=== PATIENT | male | born 1950 | race Caucasian/White ===

== ENCOUNTER 2017-06-28 22:43 | Inpatient (IN) | payer MEDICARE, MEDICAID ==
[2017-06-28 22:43] VITALS: BMI 41.3
[2017-06-28] MEDS ORDERED: Aspirin 325 mg EC Tablets PO STA (23:00)
--- NOTE | 2017-06-28 23:00 | C.PDOC ---
History Of Present Illness 66 y/o male patient presents to the ER with chest pain that started 1 1/2 days ago. Patient describes pain as dull aching chest pressure. Patient denies any fever or chills. Patient is able to speak complete sentences. Patient has a Hx of smoking and diabetes. Time Seen by Provider: 06/28/17 22:59 Chief Complaint (Nursing): Chest Pain History Per: Patient History/Exam Limitations: no limitations Onset/Duration Of Symptoms: Days (1 1/2) Current Symptoms Are (Timing): Still Present Context: Other Severity: Moderate Pain Scale Rating Of: 4 Quality: Dull, Aching, Pressure Associated Symptoms: denies: Nausea, Dyspnea Modifying Factors: None Exacerbating Factors: None Alleviating Factors: None Recent travel outside of the [place]: No Additional History Per: Patient Past Medical History Reviewed: Historical Data, Nursing Documentation, Vital Signs Vital Signs: Last Vital Signs Temp 98 F 06/28/17 22:59 Pulse 89 06/28/17 22:59 Resp 15 06/28/17 22:59 BP 148/64 06/28/17 22:59 Pulse Ox 98 06/28/17 23:26 - Medical History PMH: Asthma, CAD, COPD, Diabetes, Fractures (RIGHT KNEE TO LOWER LEG MARGARET POST FX.), Gastrointestinal Ulcer, HTN, Hypercholesterolemia, Chronic Pain (Lower back) Surgical History: CABG (x2), Coronary Stent (x7) - [facility] Procedures CLOSURE SKIN & SUBCUTANEOUS NEC (04/10/14) TETANUS TOXOID ADMINIST (04/10/14) Family History: States: No Known Family Hx - Social History Hx Tobacco Use: Yes Hx Alcohol Use: No Hx Substance Use: No - Immunization History Hx Tetanus Toxoid Vaccination: Yes (04/10/2014) Hx Influenza Vaccination: No (unsure) Hx Pneumococcal Vaccination: No (unsure) Review Of Systems Constitutional: Negative for: Fever, Chills ENT: Negative for: Throat Pain Cardiovascular: Positive for: Chest Pain Respiratory: Negative for: Shortness of Breath Gastrointestinal: Negative for: Nausea Genitourinary: Negative for: Dysuria Musculoskeletal: Negative for: Back Pain Skin: Negative for: Rash Neurological: Negative for: Weakness Psych: Negative for: Anxiety Physical Exam - Physical Exam Appears: Non-toxic Skin: Warm, Dry Head: Normacephalic Eye(s): bilateral: Normal Inspection, PERRL, EOMI Oral Mucosa: Moist Teeth: Other (Poor dentition) Neck: Trachea Midline, Supple Chest: Symmetrical, Other (CABG scar) Cardiovascular: Rhythm Regular Respiratory: No Rales, No Rhonchi, No Wheezing Gastrointestinal/Abdominal: Soft, No Tenderness, No Rebound, Other (obese) Back: No CVA Tenderness Extremity: No Tenderness, No Pedal Edema Extremity: Bilateral: Atraumatic, Normal Color And Temperature, Normal ROM Pulses: Left Dorsalis Pedis: Normal, Right Dorsalis Pedis: Normal Neurological/Psych: Oriented x3, Normal Speech, Normal Cognition Gait: Steady ED Course And Treatment - Laboratory Results Result Diagrams: 06/28/17 23:17 06/28/17 23:12 ECG: Interpreted By Me, Viewed By Me ECG Rhythm: Sinus Rhythm (89), 1st Degree HB, Nonspecific Changes (pac's) O2 Sat by Pulse Oximetry: 98 (room air) Pulse Ox Interpretation: Normal - Radiology CXR: Interpreted by Me Progress Note: Plans-Blood tests, EKG, Chest X-ray, Urinalysis. Meds-Ecotrin, Morphine, IV fluid Disposition Discussed With DrMigue: Ye Durant Comment: accepted the pt on his service and took over the care at 11:57PM Doctor Will See Patient In The: Hospital Counseled Patient/Family Regarding: Studies Performed, Diagnosis - Disposition Disposition: HOSPITALIZED Disposition Time: 22:59 Condition: GUARDED Forms: [facility] ([place]) - POA Present On Arrival: Poor Glycemic Control - Clinical Impression Clinical Impression: Chest pain - Scribe Statement The provider has reviewed the documentation as recorded by the Theresa Burnett Provider Attestation: All medical record entries made by the Theresa were at my direction and personally dictated by me. I have reviewed the chart and agree that the record accurately reflects my personal performance of the history, physical exam, medical decision making, and the department course for this patient. I have also personally directed, reviewed, and agree with the discharge instructions and disposition. Decision To Admit - Pt Status Changed To: Hospital Disposition Of: Inpatient - Admit Certification Admit to Inpatient:: After my assessment, the patient will require hospitalization for at least two midnights. This is because of the severity of symptoms shown, intensity of services needed, and/or the medical risk in this patient being treated as an outpatient. - InPatient: Physician Admission Certification: I certify that this patient requires 2 or more midnights of care for the following reason:: After my assessment, the patient will require hospitalization for at least two midnights. This is because of the severity of symptoms shown, intensity of services needed, and/or the medical risk in this patient being treated as an outpatient. - . Bed Request Type: Telemetry Admitting Physician: Ye Durant Patient Diagnosis: Chest pain, Hyperglycemia
[2017-06-28] MEDS ORDERED: Sodium Chloride 0.9% 1,000 ML IV ONE (23:03)
[2017-06-28 23:15] LABS: BASO % 0.5 % (0.0-2.0); EOS # 0.2 K/uL (0.0-0.7); HEMATOCRIT 38.2 % (35.0-51.0); LYMPH # 1.8 K/uL (1.0-4.3); LYMPH % 20.1 % (20.0-40.0); MEAN CELL VOLUME 91.8 fL (80.0-94.0); MEAN CORPUSCULAR HEMOGLOBIN 32.2 pg (27.0-31.0); MEAN CORPUSCULAR HGB CONC 35.1 g/dL (33.0-37.0); MEAN PLATELET VOLUME 8.2 fL (7.2-11.7); MONO # 0.8 K/uL (0.0-0.8); MONO % 8.7 % (0.0-10.0); NRBC % 0.1 % (0.0-2.0); RED CELL DISTRIBUTION WIDTH 13.7 % (11.5-14.5); WHITE BLOOD COUNT 9.1 K/uL (4.8-10.8)
[2017-06-28] MEDS ORDERED: Aspirin 325 mg EC Tablets PO ONE (23:15)
[2017-06-28] MEDS ORDERED: Sodium Chloride 0.9% 1,000 ML ONE (23:16)
[2017-06-28 23:22] LABS: INR 1.1
[2017-06-28 23:23] LABS: CHLORIDE 100 mmol/L (98-107); POTASSIUM 3.5 mmol/L (3.6-5.2); SODIUM 134 mmol/L (132-148)
[2017-06-28 23:25] LABS: BILIRUBIN,TOTAL 0.5 mg/dL (0.2-1.3); GFR AFRICAN-AMERICAN > 60
[2017-06-28 23:26] LABS: ALB/GLOB RATIO 1.2 (1.0-2.1); ALKALINE PHOSPHATASE 73 U/L (38-126); ALT/SGPT 33 U/L (21-72); AST/SGOT 18 U/L (17-59); BLOOD UREA NITROGEN 13 mg/dL (9-20); CALCIUM 8.8 mg/dl (8.6-10.4); CARBON DIOXIDE 25 mmol/L (22-30); GLUCOSE,RANDOM 120 mg/dL (75-110); TOTAL PROTEIN 7.3 g/dL (6.3-8.3)
[2017-06-29 01:45] LABS: RBC URINE 2 /hpf (0-3); URINE BILIRUBIN NEGATIVE (NEGATIVE); URINE BLOOD NEGATIVE (NEGATIVE); URINE COLOR Yellow (YELLOW); URINE GLUCOSE (UA) NORMAL (Normal); URINE KETONE NEGATIVE (NEGATIVE); URINE LEUKOCYTE ESTERASE NEG Leu/uL (Negative); URINE PROTEIN NEGATIVE (NEGATIVE); URINE UROBILINOGEN NORMAL mg/dL (0.2-1.0); WBC URINE 1 /hpf (0-5)
--- NOTE | 2017-06-29 10:14 | RAD ---
PROCEDURE: CHEST RADIOGRAPH, 1 VIEW HISTORY: chest pain COMPARISON: Comparison is made to 06/19/2017 FINDINGS: LUNGS: Suboptimal study due to portable technique and patient's body habitus. No evidence of new infiltrate or consolidation in the lungs. PLEURA: No pneumothorax or pleural fluid seen. CARDIOVASCULAR: Normal. OSSEOUS STRUCTURES: No significant abnormalities. VISUALIZED UPPER ABDOMEN: Normal. OTHER FINDINGS: None. IMPRESSION: Suboptimal study due to portable technique and patient's body habitus. No evidence of acute pulmonary disease.
[2017-06-29] MEDS: Pantoprazole 40 mg EC Tab PO SCH (10:20)
[2017-06-29] MEDS: Enoxaparin 40 mg Syringe SC SCH (10:21)
--- NOTE | 2017-06-29 12:35 | CP.PCM.CON ---
History of Present Illness - History of Present Illness History of Present Illness: CARDIOLOGY CONSULT NOTE Reason for consult: chest pain HPI: Patient is a 66 yo man with history of CAD s/p prior CABG and PCI; HTN; HL ; DM; COPD; chronic back pain; asthma; who presents with 2 continuous days of consistent right sided sharp chest pain, worse with sneezing or coughing, and with movement of torso in certain position. This is very different from his anginal equivalent. No associated SOB, palpitations, orthopnea, PND, leg edema , syncope or presyncope. Came to [facility]. EKG was unermarkable except for old IMI pattern. Troponin neg x 2. Cardiology now consulted. ROS: as described in HPI, otherwise negative PMH: as above Surgical hx: + cabg Shx: + tobacco, no etoh, no drugs FHx: no premature cad Meds: reviewed All: reviewed Past Patient History - Infectious Disease Hx of Infectious Diseases: None - Past Medical History & Family History Past Medical History?: Yes - Past Social History Smoking Status: Heavy Smoker > 10 Cigarettes Daily - CARDIAC Hx Cardiac Disorders: Yes Hx Heart Attack: Yes (1998) Hx Hypercholesterolemia: Yes Hx Hypertension: Yes - PULMONARY Hx Respiratory Disorders: Yes Hx Asthma: Yes Hx Chronic Obstructive Pulmonary Disease (COPD): Yes Hx Sleep Apnea: Yes - NEUROLOGICAL Hx Neurological Disorder: No - HEENT Hx HEENT Problems: Yes Hx Cataracts: Yes (Bilateral Cataract surgery) Hx Glaucoma: Yes Other/Comment: LASER SURGERY FOR GLUCOMA. SURGERY FOR TRAUMA TO LEFT EAR - RENAL Hx Chronic Kidney Disease: No - ENDOCRINE/METABOLIC Hx Endocrine Disorders: Yes Hx Diabetes Mellitus Type 2: Yes - HEMATOLOGICAL/ONCOLOGICAL Hx Blood Disorders: No - INTEGUMENTARY Hx Dermatological Problems: No - MUSCULOSKELETAL/RHEUMATOLOGICAL Hx Musculoskeletal Disorders: No Hx Falls: No Other/Comment: Uses cane - GASTROINTESTINAL Hx Gastrointestinal Disorders: Yes Hx Ulcer: Yes - GENITOURINARY/GYNECOLOGICAL Hx Genitourinary Disorders: Yes Hx Prostate Problems: Yes (BPH) Other/Comment: Takes Flomax - PSYCHIATRIC Hx Psychophysiologic Disorder: Yes Hx Substance Use: No - SURGICAL HISTORY Hx Surgeries: Yes Hx Cataract Extraction: Yes Hx Coronary Artery Bypass Graft: Yes (x2) Hx Coronary Stent: Yes (x7) - ANESTHESIA Hx Anesthesia: Yes Hx Anesthesia Reactions: No Hx Malignant Hyperthermia: No Has any member of the family had a problem w/ anesthesia?: No Meds Allergies/Adverse Reactions: Allergies Allergy/AdvReac Type Severity Reaction Status Date / Time No Known Allergies Allergy Verified 08/31/16 16:27 - Medications Medications: Current Medications Aspirin (Aspirin) 325 mg PO DAILY [facility] Last Admin: 06/29/17 10:20 Dose: 325 mg Bisoprolol Fumarate (Zebeta) 10 mg PO DAILY [facility] Last Admin: 06/29/17 10:20 Dose: 10 mg Enalapril Maleate (Vasotec) 20 mg PO DAILY [facility] Last Admin: 06/29/17 10:21 Dose: 20 mg Enoxaparin Sodium (Lovenox) 40 mg SC DAILY [facility] Last Admin: 06/29/17 10:21 Dose: 40 mg Gabapentin (Neurontin) 300 mg PO BID [facility] Glimepiride (Amaryl) 4 mg PO DAILY [facility] Metformin HCl (Glucophage) 1,000 mg PO BID [facility] Last Admin: 06/29/17 10:20 Dose: 1,000 mg Pantoprazole Sodium (Protonix Ec Tab) 40 mg PO DAILY [facility] Last Admin: 06/29/17 10:20 Dose: 40 mg Pneumococcal Polyvalent Vaccine (Pneumovax 23 Vaccine) 0.5 ml IM .ONCE ONE Stop: 07/02/17 14:01 Rosuvastatin Calcium (Crestor) 20 mg PO [facility] Tamsulosin HCl (Flomax) 0.4 mg PO DAILY [facility] Last Admin: 06/29/17 10:20 Dose: 0.4 mg Physical Exam - Constitutional Appears: Well - Head Exam Head Exam: ATRAUMATIC - Eye Exam Eye Exam: Normal appearance - ENT Exam ENT Exam: Mucous Membranes Moist - Respiratory Exam Respiratory Exam: Clear to Auscultation Bilateral - Cardiovascular Exam Cardiovascular Exam: REGULAR RHYTHM, +S1, +S2 - GI/Abdominal Exam GI & Abdominal Exam: Soft - Extremities Exam Extremities exam: Negative for: pedal edema - Skin Skin Exam: Warm Results - Vital Signs Recent Vital Signs: Last Vital Signs Temp 98.2 F 06/29/17 04:00 Pulse 73 06/29/17 08:43 Resp 20 06/29/17 04:00 BP 165/86 H 06/29/17 10:21 Pulse Ox 96 06/29/17 04:00 - Labs Result Diagrams: 06/28/17 23:17 06/28/17 23:12 Labs: Laboratory Results - last 24 hr 06/28/17 06/28/17 06/28/17 23:01 23:12 23:12 WBC RBC Hgb Hct MCV MCH MCHC RDW Plt Count MPV Neut % (Auto) Lymph % (Auto) [place] % (Auto) Eos % (Auto) Baso % (Auto) Neut # Lymph # [place] # Eos # Baso # PT 12.8 H INR 1.1 APTT 30 Sodium 134 Potassium 3.5 L Chloride 100 Carbon Dioxide 25 Anion Gap 13 BUN 13 Creatinine 0.6 L Est GFR ( Amer) > 60 Est GFR (Non-Af Amer) > 60 POC Glucose (mg/dL) 134 H Random Glucose 120 H Calcium 8.8 Total Bilirubin 0.5 AST 18 ALT 33 Alkaline Phosphatase 73 Total Creatine Kinase CK-MB (Mass) Troponin I < 0.0120 Troponin I, Quant NT-Pro-B Natriuret Pep 348 Total Protein 7.3 Albumin 4.0 Globulin 3.3 Albumin/Globulin Ratio 1.2 Urine Color Urine Clarity Urine pH Ur Specific [place] Urine Protein Urine Glucose (UA) Urine Ketones Urine Blood Urine Nitrate Urine Bilirubin Urine Urobilinogen Ur Leukocyte Esterase Urine WBC (Auto) Urine RBC (Auto) 06/28/17 06/29/17 06/29/17 23:17 01:22 06:04 WBC 9.1 RBC 4.16 L Hgb 13.4 Hct 38.2 MCV 91.8 MCH 32.2 H MCHC 35.1 RDW 13.7 Plt Count 291 MPV 8.2 Neut % (Auto) 68.7 Lymph % (Auto) 20.1 [place] % (Auto) 8.7 Eos % (Auto) 2.0 Baso % (Auto) 0.5 Neut # 6.3 Lymph # 1.8 [place] # 0.8 Eos # 0.2 Baso # 0.0 PT INR APTT Sodium Potassium Chloride Carbon Dioxide Anion Gap BUN Creatinine Est GFR ( Amer) Est GFR (Non-Af Amer) POC Glucose (mg/dL) 92 Random Glucose Calcium Total Bilirubin AST ALT Alkaline Phosphatase Total Creatine Kinase CK-MB (Mass) Troponin I Troponin I, Quant NT-Pro-B Natriuret Pep Total Protein Albumin Globulin Albumin/Globulin Ratio Urine Color Yellow Urine Clarity Clear Urine pH 5.0 Ur Specific [place] 1.016 Urine Protein Negative Urine Glucose (UA) Normal Urine Ketones Negative Urine Blood Negative Urine Nitrate Negative Urine Bilirubin Negative Urine Urobilinogen Normal Ur Leukocyte Esterase Neg Urine WBC (Auto) 1 Urine RBC (Auto) 2 06/29/17 06/29/17 07:03 11:53 WBC RBC Hgb Hct MCV MCH MCHC RDW Plt Count MPV Neut % (Auto) Lymph % (Auto) [place] % (Auto) Eos % (Auto) Baso % (Auto) Neut # Lymph # [place] # Eos # Baso # PT INR APTT Sodium Potassium Chloride Carbon Dioxide Anion Gap BUN Creatinine Est GFR ( Amer) Est GFR (Non-Af Amer) POC Glucose (mg/dL) 140 H Random Glucose Calcium Total Bilirubin AST ALT Alkaline Phosphatase Total Creatine Kinase 45 L CK-MB (Mass) 0.91 Troponin I Troponin I, Quant < 0.0120 NT-Pro-B Natriuret Pep Total Protein Albumin Globulin Albumin/Globulin Ratio Urine Color Urine Clarity Urine pH Ur Specific [place] Urine Protein Urine Glucose (UA) Urine Ketones Urine Blood Urine Nitrate Urine Bilirubin Urine Urobilinogen Ur Leukocyte Esterase Urine WBC (Auto) Urine RBC (Auto) - Impressions Impression: EKG: sinus rhythm, old inferior NC pattern, nonspecific ST-T abnormalities Tele: intermittent AV Wenkebach and 2:1 AV block Assessment & Plan - Assessment and Plan (Free Text) Assessment: 1. Atypical chest pain -- Likely musculoskeletal 2. Intermittent AV Wenkebach (asymptomatic) -- Likely due to beta blockers 3. CAD s/p prior CABG and stents Plan: 1. Check 3rd troponin to rule out NC -- If negative, then patient may be discharged home from cardiac standpoint for outpt follow up with Dr. Silva 2. Consider NSAID's for musculoskeletal chest pain 3. Reduce Bisoprolol to 5mg daily for AV Wenkebach 4. Increase enalapril to 40mg daily for HTN, since bisoprolol dose is being reduced
--- NOTE | 2017-06-29 19:01 | CP.PCM.HP ---
Past Patient History - Infectious Disease Hx of Infectious Diseases: None - Past Medical History & Family History Past Medical History?: Yes - Past Social History Smoking Status: Heavy Smoker > 10 Cigarettes Daily - CARDIAC Hx Cardiac Disorders: Yes Hx Hypertension: Yes - PULMONARY Hx Respiratory Disorders: Yes Hx Asthma: Yes Hx Chronic Obstructive Pulmonary Disease (COPD): Yes Hx Sleep Apnea: Yes - NEUROLOGICAL Hx Neurological Disorder: No - HEENT Hx HEENT Problems: Yes Hx Cataracts: Yes (Bilateral Cataract surgery) Hx Glaucoma: Yes Other/Comment: LASER SURGERY FOR GLUCOMA. SURGERY FOR TRAUMA TO LEFT EAR - RENAL Hx Chronic Kidney Disease: No - ENDOCRINE/METABOLIC Hx Diabetes Mellitus Type 2: Yes - HEMATOLOGICAL/ONCOLOGICAL Hx Blood Disorders: No - INTEGUMENTARY Hx Dermatological Problems: No - MUSCULOSKELETAL/RHEUMATOLOGICAL Hx Arthritis: Yes (lbp; r knee pain) - GASTROINTESTINAL Hx Gastrointestinal Disorders: Yes Hx Ulcer: Yes - GENITOURINARY/GYNECOLOGICAL Hx Genitourinary Disorders: Yes Hx Prostate Problems: Yes (BPH) Other/Comment: Takes Flomax - PSYCHIATRIC Hx Psychophysiologic Disorder: Yes Hx Substance Use: No - SURGICAL HISTORY Hx Surgeries: Yes Hx Cataract Extraction: Yes Hx Coronary Artery Bypass Graft: Yes (x2) Hx Coronary Stent: Yes (x7) - ANESTHESIA Hx Anesthesia: Yes Hx Anesthesia Reactions: No Hx Malignant Hyperthermia: No Has any member of the family had a problem w/ anesthesia?: No Meds Allergies/Adverse Reactions: Allergies Allergy/AdvReac Type Severity Reaction Status Date / Time No Known Allergies Allergy Verified 08/31/16 16:27 Physical Exam - Constitutional Appears: Well - Head Exam Head Exam: ATRAUMATIC, NORMAL INSPECTION, NORMOCEPHALIC - Eye Exam Eye Exam: EOMI, Normal appearance, PERRL Pupil Exam: NORMAL ACCOMODATION, PERRL - ENT Exam ENT Exam: Mucous Membranes Moist, Normal Exam - Neck Exam Neck exam: Positive for: Normal Inspection - Respiratory Exam Respiratory Exam: Decreased Breath Sounds - Cardiovascular Exam Cardiovascular Exam: REGULAR RHYTHM, +S1, +S2 - GI/Abdominal Exam GI & Abdominal Exam: Diminished Bowel Sounds, Soft - Rectal Exam Rectal Exam: Deferred Results - Vital Signs Recent Vital Signs: Last Vital Signs Temp 97.7 F 06/29/17 15:06 Pulse 58 L 06/29/17 15:06 Resp 20 06/29/17 15:06 BP 114/67 10/14/17 15:06 Pulse Ox 96 06/29/17 15:06 - Labs Result Diagrams: 06/28/17 23:17 06/28/17 23:12 Labs: Laboratory Results - last 24 hr 06/28/17 06/28/17 06/28/17 23:01 23:12 23:12 WBC RBC Hgb Hct MCV MCH MCHC RDW Plt Count MPV Neut % (Auto) Lymph % (Auto) [place] % (Auto) Eos % (Auto) Baso % (Auto) Neut # Lymph # [place] # Eos # Baso # PT 12.8 H INR 1.1 APTT 30 Sodium 134 Potassium 3.5 L Chloride 100 Carbon Dioxide 25 Anion Gap 13 BUN 13 Creatinine 0.6 L Est GFR ( Amer) > 60 Est GFR (Non-Af Amer) > 60 POC Glucose (mg/dL) 134 H Random Glucose 120 H Calcium 8.8 Total Bilirubin 0.5 AST 18 ALT 33 Alkaline Phosphatase 73 Total Creatine Kinase CK-MB (Mass) Troponin I < 0.0120 Troponin I, Quant NT-Pro-B Natriuret Pep 348 Total Protein 7.3 Albumin 4.0 Globulin 3.3 Albumin/Globulin Ratio 1.2 Urine Color Urine Clarity Urine pH Ur Specific [place] Urine Protein Urine Glucose (UA) Urine Ketones Urine Blood Urine Nitrate Urine Bilirubin Urine Urobilinogen Ur Leukocyte Esterase Urine WBC (Auto) Urine RBC (Auto) 06/28/17 06/29/17 06/29/17 23:17 01:22 06:04 WBC 9.1 RBC 4.16 L Hgb 13.4 Hct 38.2 MCV 91.8 MCH 32.2 H MCHC 35.1 RDW 13.7 Plt Count 291 MPV 8.2 Neut % (Auto) 68.7 Lymph % (Auto) 20.1 [place] % (Auto) 8.7 Eos % (Auto) 2.0 Baso % (Auto) 0.5 Neut # 6.3 Lymph # 1.8 [place] # 0.8 Eos # 0.2 Baso # 0.0 PT INR APTT Sodium Potassium Chloride Carbon Dioxide Anion Gap BUN Creatinine Est GFR ( Amer) Est GFR (Non-Af Amer) POC Glucose (mg/dL) 92 Random Glucose Calcium Total Bilirubin AST ALT Alkaline Phosphatase Total Creatine Kinase CK-MB (Mass) Troponin I Troponin I, Quant NT-Pro-B Natriuret Pep Total Protein Albumin Globulin Albumin/Globulin Ratio Urine Color Yellow Urine Clarity Clear Urine pH 5.0 Ur Specific [place] 1.016 Urine Protein Negative Urine Glucose (UA) Normal Urine Ketones Negative Urine Blood Negative Urine Nitrate Negative Urine Bilirubin Negative Urine Urobilinogen Normal Ur Leukocyte Esterase Neg Urine WBC (Auto) 1 Urine RBC (Auto) 2 06/29/17 06/29/17 06/29/17 07:03 11:53 13:29 WBC RBC Hgb Hct MCV MCH MCHC RDW Plt Count MPV Neut % (Auto) Lymph % (Auto) [place] % (Auto) Eos % (Auto) Baso % (Auto) Neut # Lymph # [place] # Eos # Baso # PT INR APTT Sodium Potassium Chloride Carbon Dioxide Anion Gap BUN Creatinine Est GFR ( Amer) Est GFR (Non-Af Amer) POC Glucose (mg/dL) 140 H Random Glucose Calcium Total Bilirubin AST ALT Alkaline Phosphatase Total Creatine Kinase 45 L 41 L CK-MB (Mass) 0.91 0.86 Troponin I Troponin I, Quant < 0.0120 < 0.0120 NT-Pro-B Natriuret Pep Total Protein Albumin Globulin Albumin/Globulin Ratio Urine Color Urine Clarity Urine pH Ur Specific [place] Urine Protein Urine Glucose (UA) Urine Ketones Urine Blood Urine Nitrate Urine Bilirubin Urine Urobilinogen Ur Leukocyte Esterase Urine WBC (Auto) Urine RBC (Auto) 06/29/17 16:34 WBC RBC Hgb Hct MCV MCH MCHC RDW Plt Count MPV Neut % (Auto) Lymph % (Auto) [place] % (Auto) Eos % (Auto) Baso % (Auto) Neut # Lymph # [place] # Eos # Baso # PT INR APTT Sodium Potassium Chloride Carbon Dioxide Anion Gap BUN Creatinine Est GFR ( Amer) Est GFR (Non-Af Amer) POC Glucose (mg/dL) 122 H Random Glucose Calcium Total Bilirubin AST ALT Alkaline Phosphatase Total Creatine Kinase CK-MB (Mass) Troponin I Troponin I, Quant NT-Pro-B Natriuret Pep Total Protein Albumin Globulin Albumin/Globulin Ratio Urine Color Urine Clarity Urine pH Ur Specific [place] Urine Protein Urine Glucose (UA) Urine Ketones Urine Blood Urine Nitrate Urine Bilirubin Urine Urobilinogen Ur Leukocyte Esterase Urine WBC (Auto) Urine RBC (Auto)
[2017-06-29] MEDS ORDERED: Potassium Chloride 20 mEq ER Tab PO STA (23:33)
[2017-06-30 08:03] VITALS: RESP 20
[2017-06-30] MEDS: Enoxaparin 40 mg Syringe SC SCH (09:23)
[2017-06-30] MEDS: Pantoprazole 40 mg EC Tab PO SCH (09:24)
--- NOTE | 2017-06-30 19:41 | CP.PCM.PN ---
Subjective - Date & Time of Evaluation Date of Evaluation: 06/30/17 Time of Evaluation: 11:40 - Subjective Subjective: clinically same Objective - Vital Signs/Intake and Output Vital Signs (last 24 hours): Temp Pulse Resp BP Pulse Ox 98.1 F 70 20 150/69 98 06/30/17 15:20 06/30/17 15:20 06/30/17 15:20 06/30/17 15:20 06/30/17 15:20 - Medications Medications: Current Medications Aspirin (Aspirin) 325 mg PO DAILY [facility] Last Admin: 06/30/17 09:24 Dose: 325 mg Enalapril Maleate (Vasotec) 40 mg PO DAILY [facility] Last Admin: 06/30/17 09:30 Dose: 40 mg Enoxaparin Sodium (Lovenox) 40 mg SC DAILY [facility] Last Admin: 06/30/17 09:23 Dose: 40 mg Gabapentin (Neurontin) 300 mg PO BID [facility] Last Admin: 06/30/17 18:06 Dose: 300 mg Glimepiride (Amaryl) 4 mg PO DAILY [facility] Last Admin: 06/30/17 09:24 Dose: 4 mg Ketorolac Tromethamine (Toradol) 30 mg IVP Q6 PRN PRN Reason: Pain, severe (8-10) Last Admin: 06/30/17 04:15 Dose: 30 mg Metformin HCl (Glucophage) 1,000 mg PO BID [facility] Last Admin: 06/30/17 18:04 Dose: 1,000 mg Pantoprazole Sodium (Protonix Ec Tab) 40 mg PO DAILY [facility] Last Admin: 06/30/17 09:24 Dose: 40 mg Pneumococcal Polyvalent Vaccine (Pneumovax 23 Vaccine) 0.5 ml IM .ONCE ONE Stop: 07/02/17 14:01 Rosuvastatin Calcium (Crestor) 20 mg PO HS [facility] Last Admin: 06/29/17 22:19 Dose: 20 mg Tamsulosin HCl (Flomax) 0.4 mg PO DAILY [facility] Last Admin: 06/30/17 09:24 Dose: 0.4 mg - Labs Labs: 06/28/17 23:17 06/28/17 23:12 PT 12.8 SECONDS (9.7-12.2) H 06/28/17 23:12 INR 1.1 06/28/17 23:12 APTT 30 SECONDS (21-34) 06/28/17 23:12 - Constitutional Appears: Well - Head Exam Head Exam: ATRAUMATIC, NORMAL INSPECTION, NORMOCEPHALIC - Eye Exam Eye Exam: EOMI, Normal appearance, PERRL Pupil Exam: NORMAL ACCOMODATION, PERRL - ENT Exam ENT Exam: Mucous Membranes Moist, Normal Exam - Neck Exam Neck Exam: Full ROM, Normal Inspection. absent: Lymphadenopathy - Respiratory Exam Respiratory Exam: Decreased Breath Sounds - Cardiovascular Exam Cardiovascular Exam: REGULAR RHYTHM, +S1, +S2 - GI/Abdominal Exam GI & Abdominal Exam: Soft, Diminished Bowel Sounds - Rectal Exam Rectal Exam: Deferred
[2017-07-01 00:52] VITALS: O2SAT 97
[2017-07-01 08:38] VITALS: PULSE 69; TEMP 98.5
--- NOTE | 2017-07-01 09:10 | CP.PCM.PN ---
Subjective - Date & Time of Evaluation Date of Evaluation: 07/01/17 Time of Evaluation: 09:10 - Subjective Subjective: PGY-[address] Durant's Service: Pt seen and examined at bedside. Nursing reports no acute events overnight. Patient found resting comfortably in bed. He still c/o of atypical right-sided chest pain. He denies association with SOB, palpitations, diaphoresis. He denies extremity swelling or dyspnea with exertion. Objective - Vital Signs/Intake and Output Vital Signs (last 24 hours): Temp Pulse Resp BP Pulse Ox 98.5 F 69 20 177/77 H 97 07/01/17 07:10 07/01/17 07:10 07/01/17 07:10 07/01/17 07:10 07/01/17 07:10 Intake and Output: 07/01/17 07/01/17 06:59 18:59 Intake Total 600 Output Total 1400 Balance -800 - Medications Medications: Current Medications Aspirin (Aspirin) 325 mg PO DAILY [facility] Last Admin: 06/30/17 09:24 Dose: 325 mg Enalapril Maleate (Vasotec) 40 mg PO DAILY [facility] Last Admin: 06/30/17 09:30 Dose: 40 mg Enoxaparin Sodium (Lovenox) 40 mg SC DAILY [facility] Last Admin: 06/30/17 09:23 Dose: 40 mg Gabapentin (Neurontin) 300 mg PO BID [facility] Last Admin: 06/30/17 18:06 Dose: 300 mg Glimepiride (Amaryl) 4 mg PO DAILY [facility] Last Admin: 06/30/17 09:24 Dose: 4 mg Ketorolac Tromethamine (Toradol) 30 mg IVP Q6 PRN PRN Reason: Pain, severe (8-10) Last Admin: 07/01/17 00:31 Dose: 30 mg Metformin HCl (Glucophage) 1,000 mg PO BID [facility] Last Admin: 06/30/17 18:04 Dose: 1,000 mg Pantoprazole Sodium (Protonix Ec Tab) 40 mg PO DAILY [facility] Last Admin: 06/30/17 09:24 Dose: 40 mg Pneumococcal Polyvalent Vaccine (Pneumovax 23 Vaccine) 0.5 ml IM .ONCE ONE Stop: 07/02/17 14:01 Rosuvastatin Calcium (Crestor) 20 mg PO [facility] Last Admin: 06/30/17 21:58 Dose: 20 mg Tamsulosin HCl (Flomax) 0.4 mg PO DAILY [facility] Last Admin: 06/30/17 09:24 Dose: 0.4 mg - Labs Labs: 06/28/17 23:17 06/28/17 23:12 PT 12.8 SECONDS (9.7-12.2) H 06/28/17 23:12 INR 1.1 06/28/17 23:12 APTT 30 SECONDS (21-34) 06/28/17 23:12 - Constitutional Appears: Non-toxic, No Acute Distress (Excess body habitus noted) - Head Exam Head Exam: ATRAUMATIC, NORMAL INSPECTION - Eye Exam Eye Exam: EOMI Pupil Exam: PERRL - ENT Exam ENT Exam: Mucous Membranes Moist - Respiratory Exam Respiratory Exam: Clear to Ausculation Bilateral, NORMAL BREATHING PATTERN - Cardiovascular Exam Cardiovascular Exam: REGULAR RHYTHM, +S1, +S2. absent: Murmur - GI/Abdominal Exam GI & Abdominal Exam: Soft, Normal Bowel Sounds. absent: Tenderness - Back Exam Back Exam: absent: CVA tenderness (L), CVA tenderness (R) - Neurological Exam Neurological Exam: Alert, Awake, Oriented x3 - Psychiatric Exam Psychiatric exam: Normal Affect, Normal Mood - Skin Skin Exam: Dry, Normal Color, Warm Assessment and Plan - Assessment and Plan (Free Text) Plan: Chest pain - R/O ACS JULIO: negative x [address] Silva, clinical operations consultant: help appreciated - CP non-anginal - Pt should follow up in office EKG: Mobitz Type I AV block - resolved with lower dose of bisoprolol ASA 325mg PO Daily HTN Start Norvasc 5mg Daily per cardio Vasotec 20mg PO BID Type Two diabetes BG better controlled today Continue home meds Metformin 1000mg PO BID Glimepiride 4mg PO Daily Hyperlipidemia Crestor 20mg PO HS BPH Flomax 0.4 mg PO Daily Prophylaxis Protonix 40mg PO Daily Lovenox 40mg SC daily SCDs Disposition: Pt for dsicharge today
--- NOTE | 2017-07-01 10:04 | CP.PCM.PN ---
Subjective - Date & Time of Evaluation Date of Evaluation: 07/01/17 Time of Evaluation: 10:00 - Subjective Subjective: pt still has right sided postional chest pain. Objective - Vital Signs/Intake and Output Vital Signs (last 24 hours): Temp Pulse Resp BP Pulse Ox 98.5 F 69 20 177/77 H 97 07/01/17 07:10 07/01/17 07:10 07/01/17 07:10 07/01/17 07:10 07/01/17 07:10 Intake and Output: 07/01/17 07/01/17 06:59 18:59 Intake Total 600 Output Total 1400 Balance -800 - Medications Medications: Current Medications Aspirin (Aspirin) 325 mg PO DAILY [facility] Last Admin: 06/30/17 09:24 Dose: 325 mg Enalapril Maleate (Vasotec) 40 mg PO DAILY [facility] Last Admin: 06/30/17 09:30 Dose: 40 mg Enoxaparin Sodium (Lovenox) 40 mg SC DAILY [facility] [place] Last Admin: 06/30/17 09:23 Dose: 40 mg Gabapentin (Neurontin) 300 mg PO BID [facility] Last Admin: 06/30/17 18:06 Dose: 300 mg Glimepiride (Amaryl) 4 mg PO DAILY [facility] [place] Last Admin: 06/30/17 09:24 Dose: 4 mg Ketorolac Tromethamine (Toradol) 30 mg IVP Q6 PRN PRN Reason: Pain, severe (8-10) Last Admin: 07/01/17 00:31 Dose: 30 mg Metformin HCl (Glucophage) 1,000 mg PO BID [facility] [place] Last Admin: 06/30/17 18:04 Dose: 1,000 mg Pantoprazole Sodium (Protonix Ec Tab) 40 mg PO DAILY [facility] [place] Last Admin: 06/30/17 09:24 Dose: 40 mg Pneumococcal Polyvalent Vaccine (Pneumovax 23 Vaccine) 0.5 ml IM .ONCE ONE Stop: 07/02/17 14:01 Rosuvastatin Calcium (Crestor) 20 mg PO HS [facility] [place] Last Admin: 06/30/17 21:58 Dose: 20 mg Tamsulosin HCl (Flomax) 0.4 mg PO DAILY [facility] Last Admin: 06/30/17 09:24 Dose: 0.4 mg - Labs Labs: 06/28/17 23:17 06/28/17 23:12 PT 12.8 SECONDS (9.7-12.2) H 06/28/17 23:12 INR 1.1 06/28/17 23:12 APTT 30 SECONDS (21-34) 06/28/17 23:12 - Constitutional Appears: Well - Head Exam Head Exam: NORMAL INSPECTION - Eye Exam Eye Exam: EOMI - ENT Exam ENT Exam: Mucous Membranes Moist - Respiratory Exam Respiratory Exam: NORMAL BREATHING PATTERN - Cardiovascular Exam Cardiovascular Exam: REGULAR RHYTHM - GI/Abdominal Exam GI & Abdominal Exam: Normal Bowel Sounds - Extremities Exam Extremities Exam: Full ROM - Back Exam Back Exam: NORMAL INSPECTION - Neurological Exam Neurological Exam: Alert, Awake, Normal Gait - Psychiatric Exam Psychiatric exam: Normal Affect - Skin Skin Exam: Dry, Normal Color Assessment and Plan - Assessment and Plan (Free Text) Assessment: 1;.BP is high: will add norvasc 5. I would have preferred chlorthalidone, but as k was 3.5 and there is no repeat lab, I am hesitant to start now, if the pt is to go home today. Change enalapril to 20 bid. 2. Mobitz I av block has resolved with lower bisoprolol. , but bp i high. 3. Pt's chest pain is clearly non anginal. For this kind of pain, steroids are oten best, but would sulrely cause increase in BP. Pt should f/u with me, and If needed, I could give him a low dose steroid with c;lose monitoring of BP and fluid retention. 3. CAD is stable. recent stress test did not show ischemia.
[2017-07-01] MEDS: Enoxaparin 40 mg Syringe SC SCH (10:31)
[2017-07-01] MEDS: Pantoprazole 40 mg EC Tab PO SCH (10:32)
[2017-07-01 10:33] VITALS: BP 170/74
--- NOTE | 2017-07-01 12:49 | CARD ---
APPROVED REPORT EKG Measurement Heart [id number] <Conclusion> Sinus rhythm with 1st degree AV block with occasional premature ventricular complexes Possible Inferior infarct, age undetermined Abnormal ECG
--- NOTE | 2017-07-01 22:00 | CP.PCM.PN ---
Objective - Vital Signs/Intake and Output Vital Signs (last 24 hours): Temp Pulse Resp BP Pulse Ox 98.5 F 69 20 170/74 H 97 07/01/17 07:10 07/01/17 07:10 07/01/17 07:10 07/01/17 10:33 07/01/17 07:10 Intake and Output: 07/01/17 07/02/17 18:59 06:59 Intake Total 400 Balance 400 - Labs Labs: 06/28/17 23:17 06/28/17 23:12 PT 12.8 SECONDS (9.7-12.2) H 06/28/17 23:12 INR 1.1 06/28/17 23:12 APTT 30 SECONDS (21-34) 06/28/17 23:12
[2017-07-02] MEDS ORDERED: Pneumococcal 23-Valent Vaccine IM ONE (14:00)
[2017-07-02] MEDS ORDERED: Influenza Vaccine 60 mcg/0.5 mL SYR (4YR UP) IM ONE (14:00)
== END 2017-07-01 15:22 | disposition home or self-care (01) | DRG 313 ==
LOC: C.ER 22:43 → C.5S 23:55 → C.6T 06-29 00:44
PROVIDERS: ADMIT Internal Medicine Nephrology; ATTEND Internal Medicine Nephrology
DX: R07.89 Other chest pain (principal); I44.0 Atrioventricular block, first degree; E11.65 Type 2 diabetes mellitus with hyperglycemia; I10 Essential (primary) hypertension; I25.10 Atherosclerotic heart disease of native coronary artery without angina pectoris; J44.9 Chronic obstructive pulmonary disease, unspecified; E78.5 Hyperlipidemia, unspecified; N40.0 Benign prostatic hyperplasia without lower urinary tract symptoms; M54.5 Low back pain; G89.29 Other chronic pain; H40.9 Unspecified glaucoma; G47.30 Sleep apnea, unspecified; I25.2 Old myocardial infarction; Z95.1 Presence of aortocoronary bypass graft; Z95.5 Presence of coronary angioplasty implant and graft; Z79.4 Long term (current) use of insulin; Z98.42 Cataract extraction status, left eye; Z98.41 Cataract extraction status, right eye

== ENCOUNTER 2017-08-06 04:25 | Emergency (ER) | payer MEDICARE, MEDICAID ==
[2017-08-06 04:25] VITALS: BMI 41.3
[2017-08-06] MEDS ORDERED: Naproxen 550 mg Tab PO STA (05:15)
--- NOTE | 2017-08-06 05:19 | C.PDOC ---
History Of Present Illness 66 year old male presents to the ER with a complaint of left ankle pain for the past 4 days. Patient reports the area is swollen and warm to touch, he notes having no relief with percocet. Denies trauma, Hx of similar, or Hx of gout. Time Seen by Provider: 08/06/17 04:45 Chief Complaint (Nursing): Lower Extremity Problem/Injury History Per: Patient History/Exam Limitations: no limitations Onset/Duration Of Symptoms: Days Current Symptoms Are (Timing): Still Present Recent travel outside of the [place]: No Past Medical History Reviewed: Historical Data, Nursing Documentation, Vital Signs Vital Signs: Last Vital Signs Temp 98.1 F 08/06/17 04:39 Pulse 82 08/06/17 04:39 Resp 20 08/06/17 04:39 BP 128/77 08/06/17 04:39 Pulse Ox 98 08/06/17 05:52 - Medical History PMH: Arthritis (lbp; r knee pain), Asthma, CAD, COPD, Diabetes, Fractures ( RIGHT KNEE TO LOWER LEG MARGARET POST FX.), Gastrointestinal Ulcer, HTN, Hypercholesterolemia, Sleep Apnea, Chronic Pain (Lower back) Surgical History: CABG (x2), Coronary Stent (x7) - [facility] Procedures CLOSURE SKIN & SUBCUTANEOUS NEC (04/10/14) TETANUS TOXOID ADMINIST (04/10/14) Family History: States: Unknown Family Hx - Social History Hx Tobacco Use: Yes Hx Alcohol Use: No Hx Substance Use: No - Immunization History Hx Tetanus Toxoid Vaccination: Yes (04/10/2014) Hx Influenza Vaccination: No (unsure) Hx Pneumococcal Vaccination: No (unsure) Review Of Systems Musculoskeletal: Positive for: Foot Pain Skin: Positive for: Other (Swelling and warmth to left ankle) Neurological: Negative for: Weakness, Numbness Physical Exam - Physical Exam Appears: Non-toxic, No Acute Distress Skin: Warm, Dry Head: Atraumatic, Normacephalic Extremity: Normal ROM (x4), Tenderness (w/ erythema to left medial malleolus), No Pedal Edema, No Calf Tenderness, Capillary Refill (<2 seconds), No Deformity , No Swelling, Other (Old healed scar to left medial malleolus extending down from leg from bypass surgery long time ago.) Extremity: Bilateral: Atraumatic Pulses: Left Dorsalis Pedis: Normal, Right Dorsalis Pedis: Normal Neurological/Psych: Oriented x3, Normal Speech, Normal Motor, Normal Sensation Gait: Steady ED Course And Treatment O2 Sat by Pulse Oximetry: 98 (Room air) Pulse Ox Interpretation: Normal - Other Rad Left ankle x-ray X-Ray: Interpreted by Me, Viewed By Me Interpretation: No acute fractures or dislocations. Progress Note: Blood work and left ankle x-ray ordered. Naproxen administered. KRISHNA applied Reevaluation Time: 06:28 Reassessment Condition: Improved (Pt will continue current pain meds. Keflex PO ordered and pt advised follow up with PMD) Disposition Counseled Patient/Family Regarding: Diagnosis, Need For Followup, Rx Given - Disposition Disposition: HOME/ ROUTINE Disposition Time: 06:21 Condition: STABLE Additional Instructions: Please follow up with PMD Continue current pain meds Keflex po Leg elevation Return to ER if worse Prescriptions: Cephalexin [cephalexin] 500 mg PO QID #28 cap Instructions: Cellulitis (ED), Gout (ED) Forms: [employer] (Guatemalan) - Clinical Impression Clinical Impression: Ankle pain, left, Cellulitis of left ankle - Scribe Statement The provider has reviewed the documentation as recorded by the Scribe Bahman Sosa All medical record entries made by the Scribe were at my direction and personally dictated by me. I have reviewed the chart and agree that the record accurately reflects my personal performance of the history, physical exam, medical decision making, and the department course for this patient. I have also personally directed, reviewed, and agree with the discharge instructions and disposition.
[2017-08-06] MEDS ORDERED: Naproxen 550 mg Tab PO ONE (05:34)
[2017-08-06 06:38] VITALS: BP 123/73; PULSE 78; RESP 22; TEMP 98.4; O2SAT 96
--- NOTE | 2017-08-06 08:27 | RAD ---
PROCEDURE: Left Ankle Radiographs. HISTORY: pain to right ankle, medial malleolus COMPARISON: None FINDINGS: BONES: Normal. No fracture. JOINTS: Normal. No osteoarthritis. Ankle mortise maintained. Possible 2 mm lateral subchondral cyst of talar dome. Otherwise the talar dome is intact. No talar fracture suggested SOFT TISSUES: Soft tissue swelling below the medial malleolus OTHER FINDINGS: None. IMPRESSION: No fracture. . Soft tissue swelling. Possible 2 mm lateral subchondral cyst-talar dome
== END 2017-08-06 06:49 | disposition home or self-care (01) ==
LOC: C.ER 04:25
DX: M25.572 Pain in left ankle and joints of left foot (principal); L03.116 Cellulitis of left lower limb

== ENCOUNTER 2017-11-12 06:57 | Day surgery (SDC) | payer MEDICARE, MEDICAID ==
[2017-11-12] MEDS ORDERED: Propofol 10 mg/ml Inj (20 ML) ONE (09:45)
[2017-11-12] MEDS ORDERED: Lidocaine 1% PF (5ml) Amp INJ ONE (09:45)
--- NOTE | 2017-11-12 09:48 | CP.SDSHP ---
Same Day Surgery H & P - History Proposed Procedure: EGD Pre-Op Diagnosis: SEE NOTES - Previous Medical/Surgical History Cardiac: Hypertension, ASHD/CAD Endocrine/Metabolic: Diabetes Neuro: Other Misc: Other Pain: 4.Moderate Pain - Allergies Allergies: Allergies No Known Allergies Allergy (Verified 11/12/17 07:19) - Physical Exam General Appearance: N Vital Signs: Vital Signs 11/12/17 11/12/17 07:00 09:04 Temperature 97.3 F L 97.3 F L Pulse Rate 80 80 Respiratory 20 20 Rate Blood Pressure 116/87 116/87 O2 Sat by Pulse 97 97 Oximetry Mental Status: Alert & Oriented x3 Neuro: WNL Heart: Other Lungs: WNL GI: Other - {Optional Preform as Required} Breast: WNL Abdomen: Other Rectal: Other Integument: WNL : Other Ortho: WNL ENT: WNL - Impression Pt. Evaluated Today:Candidate for Anesthesia & Procedure: Yes - Date & Time Time: 09:48 Short Stay Discharge - Short Stay Discharge Admitting Diagnosis/Reason for Visit: DYSPEPSIA, ABDOMINAL PAIN Disposition: HOME/ ROUTINE
[2017-11-12] MEDS ORDERED: Ciprofloxacin 400mg/200ml D5W 400 MG/200 ML BAG IVPB STA (09:57)
[2017-11-12] MEDS ORDERED: Belladonna-Phenobarbital PO STA (09:58)
[2017-11-12] MEDS ORDERED: Pantoprazole 40 mg EC Tab PO STA (09:59)
[2017-11-12 13:46] VITALS: TEMP 96.8; O2SAT 99
[2017-11-12 13:47] VITALS: BP 140/70; PULSE 82; RESP 19
== END 2017-11-12 12:30 | disposition home or self-care (01) ==
LOC: C.ENDO 06:57
PROVIDERS: ATTEND Specialist
DX: R10.13 Epigastric pain (principal); B96.81 Helicobacter pylori [H. pylori] as the cause of diseases classified elsewhere; E11.9 Type 2 diabetes mellitus without complications; I10 Essential (primary) hypertension; I25.10 Atherosclerotic heart disease of native coronary artery without angina pectoris; K25.9 Gastric ulcer, unspecified as acute or chronic, without hemorrhage or perforation; K29.70 Gastritis, unspecified, without bleeding; K44.9 Diaphragmatic hernia without obstruction or gangrene
CPT/HCPCS: 43239; 82948; 88305; J0744

== ENCOUNTER 2017-11-14 16:19 | Emergency (ER) | payer MEDICARE, MEDICAID ==
[2017-11-14 16:33] VITALS: BMI 41.6
--- NOTE | 2017-11-14 16:59 | C.PDOC ---
History Of Present Illness 67 yr old male sent to the ER from Dr. Silva office with complaint of pain to the left mastoid process area. Patient states he has had neck pain since he had and upper endoscopy during his admission on November 07. Patient has cervical spine films done with no significant findings. States he does not take any medicine, ice or heat therapy for the pain. Patient follows up with Dr. Silva. Patient has poor compliance with medicine. Patient reports he still smoking 1 pack of cigarettes a day, is s/p CABG and AAA repair. Patient denies fever, chills, vision changes, nausea, vomiting, weakness, numbness or headache. Time Seen by Provider: 11/14/17 16:56 Chief Complaint (Nursing): Medical Clearance History Per: Patient History/Exam Limitations: no limitations Onset/Duration Of Symptoms: Days Past Medical History Reviewed: Historical Data, Nursing Documentation, Vital Signs Vital Signs: Last Vital Signs Temp 98.1 F 11/14/17 19:11 Pulse 80 11/14/17 19:11 Resp 18 11/14/17 19:11 BP 160/89 H 11/14/17 19:11 Pulse Ox 98 11/14/17 19:11 - Medical History PMH: Arthritis (lbp; r knee pain), Asthma, Benign Prostatic Hyperplasia, CAD, COPD, Diabetes, Fractures (RIGHT KNEE TO LOWER LEG MARGARET POST FX.), Gastrointestinal Ulcer, HTN, Hypercholesterolemia, Sleep Apnea, Chronic Pain ( Lower back) Surgical History: CABG (x2), Coronary Stent (x7) - [facility] Procedures CLOSURE SKIN & SUBCUTANEOUS NEC (04/10/14) TETANUS TOXOID ADMINIST (04/10/14) Family History: States: No Known Family Hx - Social History Hx Tobacco Use: Yes Hx Alcohol Use: No Hx Substance Use: No - Immunization History Hx Tetanus Toxoid Vaccination: Yes (04/10/2014) Hx Influenza Vaccination: No (unsure) Hx Pneumococcal Vaccination: No (unsure) Review Of Systems Except As Marked, All Systems Reviewed And Found Negative. Constitutional: Negative for: Fever, Chills Eyes: Negative for: Vision Change Gastrointestinal: Negative for: Nausea, Vomiting Musculoskeletal: Positive for: Neck Pain (left mastoid process area pain) Physical Exam - Physical Exam Appears: Non-toxic, No Acute Distress Skin: Warm, Dry Head: Atraumatic, Normacephalic Ear(s): Left: Other (surgical implanted left tympanic membrane, hardware seen), Right: Normal Oral Mucosa: Moist Neck: Normal ROM, Supple, Other (+ tenderness to left mastoid process area - no tenderness to sternocleidomastoid area) Respiratory: Normal Breath Sounds, No Rales, No Rhonchi, No Stridor, No Wheezing Extremity: Normal ROM, No Swelling Neurological/Psych: Oriented x3, Normal Speech ED Course And Treatment - Laboratory Results Result Diagrams: 11/14/17 17:25 11/14/17 17:25 ECG: Interpreted By Me, Viewed By Me ECG Rhythm: Sinus Tachycardia Rate From EC (BPM) O2 Sat by Pulse Oximetry: 92 (RA) Pulse Ox Interpretation: Normal - Radiology CXR: Viewed By Me, Read By Radiologist CXR Interpretation: Yes: Other (IMPRESSION: Similar cardiomegaly. Again noted is mild prominence to the central pulmonary vasculature and mild prominence to the overall interstitial lung markings- as described above. These findings may be chronic. Jose pleural effusion noted. No consolidative infiltrate.) - CT Scan/US CT - IAC Other Rad Studies (CT/US): Read By Radiologist, Radiology Report Reviewed CT/US Interpretation: IMPRESSION: Thickened left tympanic membrane is appreciated however there is no evidence of otitis media or mastoiditis on an acute basis bilaterally. The tympanic membrane pattern may be postoperative status post replacement or other surgical procedure. Clinically correlate further. Progress Note: Dr. Silva at bedside, aware of patient. 1930 - Dr. Silva was called and updates were relayed regarding patient. Medical Decision Making Medical Decision Making: L mastoid process and tendon tenderness "since upper endoscopy" 2 wks ago NO s/s of torticolis exam and Temporal Bones CT neg for otitis media/externa/mastoiditis despite h/o L TM surgical repair LOW susp of infection- same complaint @ d/c on 11/07 with normal labs and C- spine films s/s improved with Motrin and ice pack to L mastoid process area. PLAN: * CT - IAC * CXR * EKG * Lopressor PO * Motrin PO Disposition Doctor Will See Patient In The: Office Counseled Patient/Family Regarding: Studies Performed, Diagnosis - Disposition Referrals: Piero Lin MD [Staff Provider] - Ye Durant MD [Staff Provider] - Disposition: HOME/ ROUTINE Disposition Time: 19:00 Condition: GOOD Additional Instructions: CT of the L ear area was NORMAL no infections, no mastoiditis Continue ice packs to the L neck area (mastoid process) and motrin 400-600 mg every 6 hours as needed Follow-up with your PMD as needed. Instructions: Neck Pain Forms: [employer] (Faroese) - Clinical Impression Clinical Impression: Neck pain on left side - Scribe Statement The provider has reviewed the documentation as recorded by the Theresa Sargent Provider Attestation: All medical record entries made by the Theresa were at my direction and personally dictated by me. I have reviewed the chart and agree that the record accurately reflects my personal performance of the history, physical exam, medical decision making, and the department course for this patient. I have also personally directed, reviewed, and agree with the discharge instructions and disposition.
[2017-11-14 17:27] LABS: BASO # 0.1 K/uL (0.0-0.2); BASO % 0.8 % (0.0-2.0); EOS # 0.2 K/uL (0.0-0.7); EOS % 1.7 % (0.0-4.0); HEMOGLOBIN 13.8 g/dL (12.0-18.0); LYMPH # 1.8 K/uL (1.0-4.3); LYMPH % 13.8 % (20.0-40.0); MEAN CELL VOLUME 91.6 fL (80.0-94.0); MEAN CORPUSCULAR HGB CONC 34.9 g/dL (33.0-37.0); MEAN PLATELET VOLUME 7.5 fL (7.2-11.7); MONO # 0.9 K/uL (0.0-0.8); MONO % 6.7 % (0.0-10.0); NEUT # 9.9 K/uL (1.8-7.0); NRBC % 0.1 % (0.0-2.0); RBC 4.32 Mil/uL (4.40-5.90); RED CELL DISTRIBUTION WIDTH 13.7 % (11.5-14.5); WHITE BLOOD COUNT 12.8 K/uL (4.8-10.8)
[2017-11-14 17:36] LABS: PROTHROMBIN TIME 11.8 SECONDS (9.7-12.2)
[2017-11-14 17:39] LABS: ALB/GLOB RATIO 1.1 (1.0-2.1); ALT/SGPT 35 U/L (21-72); AST/SGOT 27 U/L (17-59); BLOOD UREA NITROGEN 10 mg/dL (9-20); CALCIUM 8.9 mg/dl (8.6-10.4); GFR AFRICAN-AMERICAN > 60; GFR NON-AFRICAN AMERICAN > 60
--- NOTE | 2017-11-14 17:43 | RAD ---
PROCEDURE: CHEST RADIOGRAPH, 1 VIEW HISTORY: SOB COMPARISON: 08/22/2017 FINDINGS: LUNGS: Consolidation PLEURA: No pneumothorax or pleural fluid seen. CARDIOVASCULAR: Cardio. Mild symmetrical prominence of the central pulmonary vasculature and of the overall interstitial lung markings. Part of this prominence may be technical and in part due to patient's large body habitus and portable technique. OSSEOUS STRUCTURES: Bilateral shoulder arthrosis midline sternotomy. VISUALIZED UPPER ABDOMEN: Normal. OTHER FINDINGS: None. IMPRESSION: Similar cardiomegaly. Again noted is mild prominence to the central pulmonary vasculature and mild prominence to the overall interstitial lung markings- as described above. These findings may be chronic. Jose pleural effusion noted. No consolidative infiltrate.
[2017-11-14 17:51] LABS: B-TYPE NATRIURETIC PEPTIDE 402 pg/mL (0-900)
--- NOTE | 2017-11-14 18:46 | CT ---
PROCEDURE: CT OF THE TEMPORAL BONES WITHOUT CONTRAST HISTORY: L mastoid tender x 1 week COMPARISON: None available. TECHNIQUE: High resolution axial images of the temporal bones were obtained. Targeted Coronal and sagittal reformats were generated. Radiation dose: Total exam DLP = 922.65 mGy-cm. This CT exam was performed using one or more of the following dose reduction techniques: Automated exposure control, adjustment of the mA and/or kV according to patient size, and/or use of iterative reconstruction technique. FINDINGS: RIGHT TEMPORAL BONE: RIGHT MIDDLE EAR: Unremarkable. RIGHT INNER EAR: Cochlea: Normal. Semicircular canals: Normal. RIGHT MASTOID AIR CELLS: Unremarkable. RIGHT INTERNAL AUDITORY CANAL: Normal. RIGHT EXTERNAL AUDITORY CANAL: Normal. RIGHT VESTIBULAR AND COCHLEAR AQUEDUCT: Normal. OTHER FINDINGS: None. LEFT TEMPORAL BONE: LEFT MIDDLE EAR: Thickened tympanic membrane or placement is appreciated. Patient reports prior left tympanic membrane replacement cottrell of direct visualization with referring physician prior to the exam being performed the left ossicular chain appears intact and there is no evidence of otitis media at this time grossly. LEFT INNER EAR: Cochlea: Normal. Semicircular canals: Normal. LEFT MASTOID AIR CELLS: Unremarkable LEFT INTERNAL AUDITORY CANAL: Normal. LEFT EXTERNAL AUDITORY CANAL: Normal. LEFT VESTIBULAR AND COCHLEAR AQUEDUCTS: Normal. OTHER FINDINGS: None. IMPRESSION: Thickened left tympanic membrane is appreciated however there is no evidence of otitis media or mastoiditis on an acute basis bilaterally. The tympanic membrane pattern may be postoperative status post replacement or other surgical procedure. Clinically correlate further.
[2017-11-14 19:12] VITALS: BP 160/89; PULSE 80; RESP 18; TEMP 98.1
[2017-11-14 20:03] VITALS: O2SAT 92
--- NOTE | 2017-11-16 09:01 | CARD ---
APPROVED REPORT EKG Measurement Heart [id number] <Conclusion> Sinus tachycardia with frequent premature ventricular complexes Low voltage QRS Inferior infarct, age undetermined Cannot rule out Anterior infarct, age undetermined Abnormal ECG
== END 2017-11-14 19:12 | disposition home or self-care (01) ==
LOC: C.ER 16:19
DX: M54.2 Cervicalgia (principal)

== ENCOUNTER 2017-11-19 06:23 | Day surgery (SDC) | payer MEDICARE, MEDICAID ==
--- NOTE | 2017-11-19 08:03 | CP.SDSHP ---
Same Day Surgery H & P - History Proposed Procedure: COLONSCOPY - Previous Medical/Surgical History Cardiac: Hypertension, ASHD/CAD Pulmonary: Asthma Endocrine/Metabolic: Diabetes, Other Misc: Other Pain: 2.Mild Pain - Allergies Allergies: Allergies No Known Allergies Allergy (Verified 11/19/17 06:31) - Physical Exam General Appearance: N Vital Signs: Vital Signs 11/19/17 06:32 Temperature 97.3 F L Pulse Rate 80 Respiratory 20 Rate Blood Pressure 112/65 O2 Sat by Pulse 97 Oximetry Mental Status: Alert & Oriented x3 Neuro: WNL Heart: Other Lungs: Other GI: WNL - {Optional Preform as Required} Breast: WNL Abdomen: Other Rectal: WNL Integument: WNL : WNL Ortho: WNL ENT: WNL - Impression Pt. Evaluated Today:Candidate for Anesthesia & Procedure: Yes - Date & Time Time: 08:03 Short Stay Discharge - Short Stay Discharge Admitting Diagnosis/Reason for Visit: COLON SCREENING Disposition: HOME/ ROUTINE
[2017-11-19] MEDS ORDERED: Propofol 10 mg/ml Inj (20 ML) ONE ×2 (08:04→08:12)
[2017-11-19] MEDS ORDERED: Belladonna-Phenobarbital PO STA (08:06)
[2017-11-19] MEDS ORDERED: Lactated Ringer's 1,000 ML IV ONE ×2 (08:07)
[2017-11-19 08:39] VITALS: TEMP 97.8
[2017-11-19 09:50] VITALS: RESP 17; O2SAT 98
[2017-11-19 09:56] VITALS: BP 113/55; PULSE 84
== END 2017-11-19 09:35 | disposition home or self-care (01) ==
LOC: C.ENDO 06:23
PROVIDERS: ATTEND Specialist
DX: Z12.11 Encounter for screening for malignant neoplasm of colon (principal); K64.8 Other hemorrhoids; K57.30 Diverticulosis of large intestine without perforation or abscess without bleeding
CPT/HCPCS: 45380; 82948; 88305; J2001; J2704; J7120

== ENCOUNTER 2018-01-07 06:26 | Day surgery (SDC) | payer MEDICARE, MEDICAID ==
[~2018-01-07 06:26] MED LIST: Lidocaine Hydrochloride 10 ML INJ ONE; Propofol 10 mg/ml Inj (20 ML) ONE
[2018-01-07 06:53] VITALS: BMI 41.6
[2018-01-07 07:37] VITALS: TEMP 97
[2018-01-07] MEDS ORDERED: Lactated Ringer's 500 ML IV ONE ×2 (08:16)
--- NOTE | 2018-01-07 08:18 | CP.SDSHP ---
Same Day Surgery H & P - History Proposed Procedure: EGD Pre-Op Diagnosis: SEE NOTES - Previous Medical/Surgical History Cardiac: Hypertension, ASHD/CAD Pulmonary: Asthma, Emphysema/COPD Endocrine/Metabolic: Diabetes, Other Pain: 4.Moderate Pain Previous Surgical History: CARD. STENTS - Allergies Allergies: Allergies No Known Allergies Allergy (Verified 12/26/17 09:11) - Physical Exam General Appearance: N Vital Signs: Vital Signs 01/07/18 07:22 Temperature 97 F L Pulse Rate 83 Respiratory 17 Rate Blood Pressure 135/67 O2 Sat by Pulse 96 Oximetry Mental Status: Alert & Oriented x3 Neuro: WNL Heart: Other Lungs: Other GI: Other - {Optional Preform as Required} Breast: WNL Abdomen: Other Rectal: Other Integument: WNL : WNL Ortho: WNL ENT: WNL - Impression Pt. Evaluated Today:Candidate for Anesthesia & Procedure: Yes - Date & Time Time: 08:17 Short Stay Discharge - Short Stay Discharge Admitting Diagnosis/Reason for Visit: GASTRIC ULCER Disposition: HOME/ ROUTINE Referrals: Piero Lin MD [Primary Care Provider] -
[2018-01-07] MEDS ORDERED: Midazolam 2 MG/2 ML VIAL ONE (08:20)
[2018-01-07] MEDS ORDERED: Etomidate 20 mg/10ml Inj IV ONE (08:20)
[2018-01-07] MEDS ORDERED: Pantoprazole 40 mg EC Tab PO ONE (08:55)
[2018-01-07 10:32] VITALS: RESP 19; O2SAT 97
[2018-01-07 10:45] VITALS: BP 148/58; PULSE 80
== END 2018-01-07 09:47 | disposition home or self-care (01) ==
LOC: C.ENDO 06:26
PROVIDERS: ATTEND Specialist
DX: K21.0 Gastro-esophageal reflux disease with esophagitis (principal); I10 Essential (primary) hypertension; I25.10 Atherosclerotic heart disease of native coronary artery without angina pectoris; J43.9 Emphysema, unspecified; E11.9 Type 2 diabetes mellitus without complications; K44.9 Diaphragmatic hernia without obstruction or gangrene
CPT/HCPCS: 43235; 82948; J2001; J2250; J2765; J7120

== ENCOUNTER 2018-11-27 07:02 | Inpatient (IN) | payer MEDICARE, MEDICAID ==
[2018-11-27 07:52] VITALS: BMI 39.9
[2018-11-27] MEDS ORDERED: Magnesium Citrate Oral SOL (300 ml) PO ONE (11:30)
[2018-11-27 11:52] LABS: BASO # 0.1 K/uL (0.0-0.2); BASO % 0.7 % (0.0-2.0); EOS # 0.3 K/uL (0.0-0.7); EOS % 2.7 % (0.0-4.0); HEMOGLOBIN 13.5 g/dL (12.0-18.0); LYMPH # 1.6 K/uL (1.0-4.3); LYMPH % 17.1 % (20.0-40.0); MEAN CELL VOLUME 89.8 fL (80.0-94.0); MEAN CORPUSCULAR HEMOGLOBIN 29.4 pg (27.0-31.0); MEAN CORPUSCULAR HGB CONC 32.7 g/dL (33.0-37.0); MEAN PLATELET VOLUME 8.4 fL (7.2-11.7); MONO # 0.8 K/uL (0.0-0.8); MONO % 7.8 % (0.0-10.0); NEUT # 6.9 K/uL (1.8-7.0); NEUT % 71.7 % (50.0-75.0); NRBC % 0.1 % (0.0-2.0); RBC 4.58 Mil/uL (4.40-5.90); RED CELL DISTRIBUTION WIDTH 16.1 % (11.5-14.5); WHITE BLOOD COUNT 9.6 K/uL (4.8-10.8)
[2018-11-27 11:57] LABS: ALB/GLOB RATIO 1.2 (1.0-2.1); ALBUMIN 4.6 g/dL (3.5-5.0); ALT/SGPT 28 U/L (21-72); AST/SGOT 28 U/L (17-59); BLOOD UREA NITROGEN 18 mg/dL (9-20); CALCIUM 9.4 mg/dl (8.6-10.4); GFR NON-AFRICAN AMERICAN > 60
[2018-11-27 12:00] LABS: INR 1.1; PROTHROMBIN TIME 11.5 SECONDS (9.7-12.2)
[2018-11-27] MEDS ORDERED: Metoprolol 1 mg/ml Inj IVP ONE (12:06)
[2018-11-27] MEDS ORDERED: Metoprolol 1 mg/ml Inj ONE ×2 (12:10→12:15)
[2018-11-27] MEDS ORDERED: CODEINE PO PRN (12:15)
[2018-11-27] MEDS ORDERED: Lactulose 10 gm/15 ml (Rectal Use) PR PRN (12:15)
[2018-11-27] MEDS ORDERED: PROMETHAZINE HCL PO PRN (12:15)
[2018-11-27] MEDS ORDERED: Albuterol HFA 90 mcg/actuation (8 g) IH PRN (12:15)
[2018-11-27] MEDS ORDERED: Nitroglycerin 50mg in D5W 50 MG/250 ML BOTTLE IV SCH (12:15)
--- NOTE | 2018-11-27 12:24 | PCM.RRT ---
TANK ASSEMBLER Nurses Assessment - Situation Date: 11/27/18 Time TANK ASSEMBLER was called: 11:58 TANK ASSEMBLER Location:: Endoscopy TANK ASSEMBLER Reason for Call: Chest Pain TANK ASSEMBLER Called By: RN - IV IV Inserted during TANK ASSEMBLER?: No - Respiratory TANK ASSEMBLER Delivery Method: Nasal Cannula @L/min Oxygen Flow Rate: 4 Was the Patient Intubated?: No - Medication Medications Administered During TANK ASSEMBLER: ASA 325mg. Nitro 0.4 SL. Morphine 2mg IV. Lopressor 5mg IV - Diagnostic Test Ordered EKG: Yes (ST/T wave abnormality) - Stat Labs Ordered TANK ASSEMBLER Stat Labs Ordered: TROPONIN CPR started during TANK ASSEMBLER?: No - Vital Signs Vital Signs: T 98.6 HR 88 BP 156/86 RR 18 O2 98% - Vital Signs at end of TANK ASSEMBLER Vital Signs at end of TANK ASSEMBLER: T 98.6 HR 83 BP 136/66 RR 20 O2 97% - Recommendations 5) TANK ASSEMBLER Level of Care Recommendations: Transfer to ICU Notifications: Attending Physician, Consultations I.Reason for TANK ASSEMBLER - A) Acute Change in Patient: (Select all that apply): Chest Pain - Neurological Status (Select all that apply): Alert - Respiratory Oxygen Delivery Method: Nasal Cannula @L/min - Constitutional Appears: Non-toxic, In Acute Distress - Head Head Exam: ATRAUMATIC, NORMAL INSPECTION, NORMOCEPHALIC - Eyes Eye Exam: EOMI, Normal appearance - Respiratory Exam Respiratory Exam: NORMAL BREATHING PATTERN - Cardiovascular Exam Cardiovascular Exam: Tachycardia, REGULAR RHYTHM - GI/Abdominal Exam GI & Abdominal Exam: Soft, Normal Bowel Sounds - Neurological Exam Neurological Exam: Alert, Awake, Oriented x3 - Extremities Exam Extremities Exam: Normal Inspection Plan - Assessment of Findings&Treatment Plan TANK ASSEMBLER called by nurse in Endoscopy due to complaints of acute chest pain. Patient is here for scheduled colonoscopy. Patient went to use restroom and reported to nurse he had chest pain and wanted his nitro. Nurse reports patient appeared in distress with elevated BP of 156/86 systolic, and thus called TANK ASSEMBLER. Patient is s/p discharge from [facility] on 11/15, found to have occlusion of graft and scheduled for cardiothoracic surgery later this month. EKG revealed ST/T wave abnormalities, consider anterolateral ischemia Cardiology consulted, Dr. Chapin-present during TANK ASSEMBLER ICU consult Transfer to ICU Start heparin drip Start nitro drip Resume home meds Discussed with Dr. Kruse -Alejandra Marquez, PGY-1
[2018-11-27] MEDS ORDERED: LIRAGLUTIDE 1.8 MG SC SCH (12:30)
[2018-11-27] MEDS ORDERED: UMECLIDINIUM BROMIDE IH SCH (12:30)
[2018-11-27] MEDS: Metoprolol Succinate 25 mg XL Tab PO SCH (13:27)
[2018-11-27 13:28] LABS: SQUAMOUS EPITHIAL 1 /hpf (0-5); URINE BILIRUBIN NEGATIVE (NEGATIVE); URINE BLOOD NEGATIVE (NEGATIVE); URINE CLARITY Clear (Clear); URINE COLOR Yellow (YELLOW); URINE GLUCOSE (UA) NORMAL (Normal); URINE LEUKOCYTE ESTERASE NEG Leu/uL (Negative); URINE PROTEIN NEGATIVE (NEGATIVE); URINE UROBILINOGEN NORMAL mg/dL (0.2-1.0)
[2018-11-27] MEDS: Heparin25000 units/250ml 1/2NS 25,000 UNITS/250 ML BAG IV PRN (13:38)
--- NOTE | 2018-11-27 13:42 | CP.PCM.CON ---
History of Present Illness - History of Present Illness History of Present Illness: ICU Consult Note for Dr. Purdy This is a 68 y o male with PMhx CAD x6 stents s/p CABG with PAL to LAD and SVG to RCA grafts, AAA, carotid stenosis s/p endarterectomy, HTN, DM, HLD, COPD, and BPH, who presented to [facility] (Former[facility]) for scheduled outpatient colonoscopy. BUTT PRESSER was called in Endoscopy today due to pt c/o acute chest pain. At time of onset, pt went to use restroom and reported to RN that he had chest pain and wanted his Nitroglycerin. At time of BUTT PRESSER onset, RN reported pt appeared in distress with elevated BP 156/86. Pt was recently discharged from [facility] on 11/15/18 after being treated for CHF exacerbation and found to have occlusion of graft; at that time was given referral to f/u with Dr. Fernando (CT surgeon), states he is scheduled for surgery later this month. EKG during BUTT PRESSER revealed St/T wave abnormalities, and possible T-wave inversions in lateral leads. Cardiology (Dr. Chapin) was present during BUTT PRESSER. Pt was given Nitroglycerin during BUTT PRESSER with immediate improvement of chest pain symptoms. Reason for ICU consult was for NSTEMI. On my exam, pt denied chest pain, sob, and stated that associated di aphoresis had resolved. 12-point ROS obtained, otherwise neg as per pt. PMH: CAD x 6 stents s/p CABG with PAL to LAD and SVG to RCA grafts, AAA, carotid stenosis s/p endarterectomy, HTN, DM, HLD, COPD, BPH All: NKDA PSH: CABG SH: 1/2 pack smoker x 20 years FH: F: CAD, CA, DM Meds: reviewed as per [facility] Review of Systems - Constitutional Constitutional: Fatigue, Malaise. absent: Chills, Fever, Headache - EENT Eyes: absent: Change in Vision - Cardiovascular Cardiovascular: Chest Pain, Diaphoresis. absent: Dyspnea on Exertion Past Patient History - Infectious Disease Hx of Infectious Diseases: None - Tetanus Immunizations Tetanus Immunization: Unknown - Past Medical History & Family History Past Medical History?: Yes - Past Social History Smoking Status: Former Smoker - CARDIAC Hx Cardiac Disorders: Yes (cp, mi 1999, aaa, cad) Hx Angina: Yes Hx Cardia Arrhythmia: Yes Hx Congestive Heart Failure: Yes Hx Heart Attack: Yes (1998) Hx Hypercholesterolemia: Yes Hx Hypertension: Yes Hx Peripheral Edema: Yes (ble +1) Hx Peripheral Vascular Disease: Yes Other/Comment: cabg 1998 [facility] - PULMONARY Hx Respiratory Disorders: Yes Hx Asthma: Yes Hx Chronic Obstructive Pulmonary Disease (COPD): Yes Hx Sleep Apnea: Yes (does not use his cpap) Other/Comment: pt does not use his cpap c/o he has nose and throat problem - NEUROLOGICAL Hx Neurological Disorder: Yes HX Cerebrovascular Accident: Yes (2017) Hx Dizziness: Yes Other/Comment: pt was in [place] and wound up in [facility] had left carotid sx stated they "cleaned it out. It was 99% blocked.", numbness feet and legs - HEENT Hx HEENT Problems: Yes Hx Cataracts: Yes (Bilateral Cataract surgery) Hx Deafness: Yes (L ear sx, piece of metal) Hx Glaucoma: Yes Other/Comment: LASER SURGERY FOR GLAUCOMA. SURGERY FOR TRAUMA TO LEFT EAR, work related, was working and metal flew into eardrum, hearing impaired left ear - RENAL Hx Chronic Kidney Disease: No - ENDOCRINE/METABOLIC Hx Endocrine Disorders: Yes Hx Diabetes Mellitus Type 1: Yes Hx Diabetes Mellitus Type 2: Yes - HEMATOLOGICAL/ONCOLOGICAL Hx Blood Disorders: No - INTEGUMENTARY Hx Dermatological Problems: Yes Other/Comment: lle scaley dry skin dry scabs +1 edema, dry thick toenails both feet, rle +1 edema multiple skin discolorations, +1 pitting edema both feet - MUSCULOSKELETAL/RHEUMATOLOGICAL Hx Musculoskeletal Disorders: Yes (pinched nerve back) Hx Arthritis: Yes (r knee pain) Hx Back Pain: Yes (chronic cervical and lumbar) Hx Falls: Yes (r leg gives out) Hx Fractures: Yes Hx Herniated Disk: Yes (cervical and lumbar spine) Hx Unsteady Gait: Yes (cane) Other/Comment: chronic right knee pain, chronic back pain takes steroid shots to right knee and back - GASTROINTESTINAL Hx Gastrointestinal Disorders: Yes (upper gi bleed, obese) Hx Ulcer: Yes Other/Comment: HX: ABDOMINAL AORITIC ANEURYSM- NO SURGERY - GENITOURINARY/GYNECOLOGICAL Hx Genitourinary Disorders: Yes Hx Prostate Problems: Yes (BPH) Other/Comment: Takes Flomax - PSYCHIATRIC Hx Psychophysiologic Disorder: No Hx Anxiety: Yes Hx Depression: Yes Hx Substance Use: No - SURGICAL HISTORY Hx Surgeries: Yes Hx Cataract Extraction: Yes Hx Cardiac Catheterization: Yes Hx Coronary Artery Bypass Graft: Yes (x2) Hx Coronary Stent: Yes Hx Eye Surgery: Yes (CAMILA) Hx Musculoskeletal Surgery: Yes Hx Open Heart Surgery: Yes Hx Open Reduction Internal Fixation: Yes (RIGHT LEG) Hx Orthopedic Surgery: Yes (RIGHT KNEE TO LOWER LEG WITH MARGARET PLACED AFTER FX.) Other/Comment: pt fell about 6 yrs ago orif right knee to lower leg with margaret at [facility] - ANESTHESIA Hx Anesthesia: Yes Hx Anesthesia Reactions: No Hx Malignant Hyperthermia: No Meds Allergies/Adverse Reactions: Allergies Allergy/AdvReac Type Severity Reaction Status Date / Time No Known Allergies Allergy Verified 11/27/18 07:51 - Medications Medications: Current Medications Albuterol (Ventolin Hfa 90 Mcg/Actuation (8 G)) 2 puff IH QID PRN PRN Reason: Shortness of Breath Albuterol Sulfate (Albuterol 0.042% Inhal Lilia (1.25mg/3ml) Ud) 1.25 mg IH RQ8 [facility] Aspirin (Ecotrin) 81 mg PO DAILY [facility] Last Admin: 11/27/18 13:27 Dose: 81 mg Bisacodyl (Dulcolax) 10 mg PO ONCE ONE Stop: 11/27/18 17:01 Clopidogrel Bisulfate (Plavix) 75 mg PO DAILY [facility] Enalapril Maleate (Vasotec) 10 mg PO DAILY [facility] Last Admin: 11/27/18 13:26 Dose: 10 mg Furosemide (Lasix) 40 mg PO BID [facility] Glimepiride (Amaryl) 4 mg PO DAILY [facility] Last Admin: 11/27/18 13:27 Dose: 4 mg Home Med (Dutasteride [Avodart]) 0.5 mg PO DAILY [facility] Home Med (Liraglutide [Victoza 3-Guido]) 1.8 mg SC DAILY [facility] Home Med (Potassium Chloride [Klor-Con M10]) 10 meq PO DAILY [facility] Home Med (Promethazine Hcl/Codeine [Prometh-Codein 6.25-10 Mg/5 Ml]) 5 ml PO PRN PRN PRN Reason: Cough Home Med (Ranolazine [Ranexa]) 1,000 mg PO BID [facility] Home Med (Umeclidinium [place] [Incruse Ellipta]) 1 puff IH DAILY [facility] Home Med (Vit B Complx/Folic Ac/C/Biotin [Folika-T Tablet]) 1 each PO DAILY [facility] Heparin Sodium/Sodium Chloride (Heparin 86491 Units/250ml 1/2 Normal Saline) 25,000 units in 250 mls @ 13.88 mls/hr IV .Q18H1M PRN; Protocol PRN Reason: ADJUST RATE PER PROTOCOL Nitroglycerin/Dextrose (Nitroglycerin 50 Mg/250 Ml D5w) 50 mg in 250 mls @ 1.5 mls/hr IV .Q24H [facility]; Protocol Isosorbide Mononitrate (Imdur Er) 60 mg PO DAILY [facility] Ketoconazole (Nizoral) gm TOP BID JADE Lactic Acid (Lac-Hydrin 12% Lotion (225 G)) 1 gm TOP BID JADE Lactulose (Generlac) 10 gm VA DAILY PRN PRN Reason: Constipation Metformin HCl (Glucophage) 1,000 mg PO BIDCC [facility] Metoclopramide HCl (Reglan) 5 mg IVP Q6H [facility] Metoprolol Succinate (Toprol Xl) 25 mg PO DAILY [facility] Last Admin: 11/27/18 13:27 Dose: 25 mg Montelukast Sodium (Singulair) 10 mg PO DAILY [facility] Last Admin: 11/27/18 13:26 Dose: 10 mg Pantoprazole Sodium (Protonix Ec Tab) 40 mg PO DAILY [facility] Rosuvastatin Calcium (Crestor) 40 mg PO HS [facility] Tamsulosin HCl (Flomax) 0.4 mg PO DAILY [facility] Last Admin: 11/27/18 13:27 Dose: 0.4 mg Ticagrelor (Brilinta) 90 mg PO BID [facility] Physical Exam - Constitutional Appears: Non-toxic, No Acute Distress - Head Exam Head Exam: ATRAUMATIC, NORMOCEPHALIC - Eye Exam Eye Exam: EOMI, Normal appearance, PERRL - ENT Exam ENT Exam: Mucous Membranes Moist - Respiratory Exam Respiratory Exam: Clear to Auscultation Bilateral, NORMAL BREATHING PATTERN. absent: Rales, Rhonchi, Wheezes - Cardiovascular Exam Cardiovascular Exam: REGULAR RHYTHM, +S1, +S2. absent: Gallop, Rubs, Systolic Murmur - GI/Abdominal Exam GI & Abdominal Exam: Normal Bowel Sounds, Soft. absent: Distended, Organomegaly, Tenderness - Extremities Exam Extremities exam: Positive for: full ROM, normal capillary refill, pedal pulses present. Negative for: pedal edema - Neurological Exam Neurological exam: Alert, CN II-XII Intact, Oriented x3 - Skin Skin Exam: Dry, Intact, Warm Results - Vital Signs Recent Vital Signs: Last Vital Signs Temp 98.6 F 11/27/18 12:00 Pulse 90 11/27/18 12:15 Resp 13 11/27/18 12:15 BP 133/62 11/27/18 13:26 Pulse Ox 98 11/27/18 12:15 - Labs Result Diagrams: 11/27/18 11:40 11/27/18 11:40 Labs: Laboratory Results - last 24 hr 11/27/18 11/27/18 11/27/18 06:38 11:40 11:40 WBC 9.6 RBC 4.58 Hgb 13.5 Hct 41.1 MCV 89.8 MCH 29.4 MCHC 32.7 L RDW 16.1 H Plt Count 341 MPV 8.4 Neut % (Auto) 71.7 Lymph % (Auto) 17.1 L [place] % (Auto) 7.8 Eos % (Auto) 2.7 Baso % (Auto) 0.7 Neut # (Auto) 6.9 Lymph # (Auto) 1.6 [place] # (Auto) 0.8 Eos # (Auto) 0.3 Baso # (Auto) 0.1 Retic Count 1.7 H PT 11.5 INR 1.1 APTT 26 Sodium Potassium Chloride Carbon Dioxide Anion Gap BUN Creatinine Est GFR ( Amer) Est GFR (Non-Af Amer) POC Glucose (mg/dL) 171 H Random Glucose Calcium Total Bilirubin AST ALT Alkaline Phosphatase Troponin I Total Protein Albumin Globulin Albumin/Globulin Ratio Alpha Fetoprotein Carcinoembryonic Ag Urine Color Urine Clarity Urine pH Ur Specific [place] Urine Protein Urine Glucose (UA) Urine Ketones Urine Blood Urine Nitrate Urine Bilirubin Urine Urobilinogen Ur Leukocyte Esterase Urine WBC (Auto) Ur Squamous Epith Cells 11/27/18 11/27/18 11/27/18 11:40 11:40 13:12 WBC RBC Hgb Hct MCV MCH MCHC RDW Plt Count MPV Neut % (Auto) Lymph % (Auto) [place] % (Auto) Eos % (Auto) Baso % (Auto) Neut # (Auto) Lymph # (Auto) [place] # (Auto) Eos # (Auto) Baso # (Auto) Retic Count PT INR APTT Sodium 137 Potassium 4.5 Chloride 97 L Carbon Dioxide 31 H Anion Gap 14 BUN 18 Creatinine 0.8 Est GFR ( Amer) > 60 Est GFR (Non-Af Amer) > 60 POC Glucose (mg/dL) Random Glucose 146 H Calcium 9.4 Total Bilirubin 0.8 AST 28 ALT 28 Alkaline Phosphatase 98 Troponin I < 0.0120 Total Protein 8.4 H Albumin 4.6 Globulin 3.8 Albumin/Globulin Ratio 1.2 Alpha Fetoprotein 1.1 Carcinoembryonic Ag 1.4 Urine Color Yellow Urine Clarity Clear Urine pH 7.0 Ur Specific [place] 1.019 Urine Protein Negative Urine Glucose (UA) Normal Urine Ketones Negative Urine Blood Negative Urine Nitrate Negative Urine Bilirubin Negative Urine Urobilinogen Normal Ur Leukocyte Esterase Neg Urine WBC (Auto) < 1 Ur Squamous Epith Cells 1 Assessment & Plan - Assessment and Plan (Free Text) Assessment: This is a 68 y o male with PMhx CAD x6 stents s/p CABG with PAL to LAD and SVG to RCA grafts, AAA, carotid stenosis s/p endarterectomy, HTN, DM, HLD, COPD, and BPH, who presented to [facility] ([facility] for scheduled outpatient colonoscopy. BUTT PRESSER was called in Endoscopy today due to pt c/o acute chest pain. At time of onset, pt went to use restroom and reported to RN that he had chest pain and wanted his Nitroglycerin. At time of BUTT PRESSER onset, RN reported pt appeared in distress with elevated BP 156/86. Pt was recently discharged from [facility] on 11/15/18 after being treated for CHF exacerbation and found to have occlusion of graft; at that time was given referral to f/u with Dr. Fernando (CT surgeon), states he is scheduled for surgery later this month. EKG during BUTT PRESSER revealed St/T wave abnormalities, and possible T-wave inversions in lateral leads. Cardiology (Dr. Chapin) was present during BUTT PRESSER. Pt was given Nitroglycerin during BUTT PRESSER with immediate improvement of chest pain symptoms. Reason for ICU consult was for NSTEMI. Pt to be admitted to ICU for further monitoring. Plan: Neuro: -AAOx3, no gross deficits on exam -Cont to monitor Cardio: -NSTEMI Cont to trend troponins, initial one during BUTT PRESSER negative Cardiology (Dr. Chapin) consulted, recs appreciated Pending Echo ASA, Plavix, Briilinta C/w home med Toprol XL Heparin drip and Nitroglycerin drips started -Hx HTN, CHF, CAD s/p 6 stents s/p CABG with PAL to LAD and SVG to RCA grafts, AAA, carotid stenosis s/p endarterectomy, HLD C/w Vasotec, Lasix, Imdur, Ranexa, Crestor -CXR read by me demonstrates no acute findings, official read pending Pulm: -Hx COPD C/w Ventolin, Albuterol, Singulair -CPAP at night for suspected sleep apnea GI: -Liquid diet -Reglan prn for n/v -Protonix -Was undergoing outpatient scheduled colonoscopy, no active bleeding at this time, cont to monitor Renal: -BUN/Cr 18/0.8 -C/w home meds Proscar and Flomax for BPH Heme: -H/H stable, cont to monitor -No leukocytosis -Cont to monitor Endo: -Hx DM2 Metformin held C/w Glimepiride therapy ISS-med Fingersticks achs Hypoglycemic protocol A1c 6.9 on 11/14/18 PPX: -Heparin drip, Protonix Pt seen, examined with, and plan discussed with Dr. Purdy, attending physician. Christopher Guzman DO PGY-1, Screw Eye Assembler Pager #[phone]
[2018-11-27] MEDS: Albuterol 0.042% Inhal Sol (1.25 mg/3 mL) UD INH SCH ×2 (16:46)
[2018-11-27] MEDS ORDERED: Bisacodyl 5mg EC Tab PO ONE (17:00)
[2018-11-27] MEDS: Ammonium Lactate 12% Lotion (225 g) TOP SCH (17:03)
[2018-11-27] MEDS: Ranolazine 500 mg Extended Release Tablets PO SCH (17:04)
[2018-11-27] MEDS: Potassium Chloride 10 mEq ER Tab PO SCH (17:05)
[2018-11-27] MEDS ORDERED: Dextrose 50% SYRINGE Inj (50 ml) IV PRN (18:07)
[2018-11-27] MEDS ORDERED: Glucagon Recombinant 1 mg Inj IM PRN (18:07)
[2018-11-27 20:35] LABS: CK-MB 0.76 ng/mL (0.0-3.38)
[2018-11-27 20:45] LABS: TROPONIN I 0.044 ng/mL (0.00-0.120)
[2018-11-27] MEDS: (Novolin R) Insulin Human Regular 100 units/ml vial SC SCH (22:02)
--- NOTE | 2018-11-28 00:05 | CARD ---
APPROVED REPORT Date of service: 11/27/2018 EKG Measurement Heart [id number] <Conclusion> Normal sinus rhythm ST & T wave abnormality, consider anterolateral ischemia Abnormal ECG
[2018-11-28 03:59] LABS: BASO # 0.1 K/uL (0.0-0.2); BASO % 0.7 % (0.0-2.0); EOS # 0.4 K/uL (0.0-0.7); EOS % 4.2 % (0.0-4.0); LYMPH % 21.4 % (20.0-40.0); MEAN CELL VOLUME 88.9 fL (80.0-94.0); MEAN CORPUSCULAR HEMOGLOBIN 28.9 pg (27.0-31.0); MEAN CORPUSCULAR HGB CONC 32.5 g/dL (33.0-37.0); MONO # 0.8 K/uL (0.0-0.8); MONO % 8.7 % (0.0-10.0); RBC 4.15 Mil/uL (4.40-5.90); RED CELL DISTRIBUTION WIDTH 15.6 % (11.5-14.5); WHITE BLOOD COUNT 9.2 K/uL (4.8-10.8)
[2018-11-28 04:24] LABS: ALB/GLOB RATIO 1.2 (1.0-2.1); ALBUMIN 4.2 g/dL (3.5-5.0); ALT/SGPT 21 U/L (21-72); AST/SGOT 25 U/L (17-59); BLOOD UREA NITROGEN 16 mg/dL (9-20); CALCIUM 9.3 mg/dl (8.6-10.4); GFR NON-AFRICAN AMERICAN > 60
[2018-11-28] MEDS: Heparin25000 units/250ml 1/2NS 25,000 UNITS/250 ML BAG IV PRN (06:25)
[2018-11-28] MEDS: (Novolin R) Insulin Human Regular 100 units/ml vial SC SCH ×4 (08:18→21:19)
[2018-11-28] MEDS ORDERED: Pantoprazole 40 mg EC Tab PO SCH (10:00)
[2018-11-28] MEDS: Metoprolol Succinate 25 mg XL Tab PO SCH (10:35)
[2018-11-28] MEDS: Potassium Chloride 10 mEq ER Tab PO SCH (10:40)
--- NOTE | 2018-11-28 11:31 | CP.CCUPN ---
<Christopher Guzman - Last Filed: 11/28/18 15:49> CCU Subjective - Physician Review Subjective (Free Text): ICU Progress Note for Dr. Oralia Durant Pt seen and examined at bedside this am. Denies chest pain currently, denies shortness of breath or other acute symptoms this am. Tolerating PO diet without concerns. Voiding well. No acute events reported overnight by staff. 12-point ROS obtained, otherwise neg as per pt. CCU Objective - Vital Signs / Intake & Output Vital Signs (Last 4 hours): Vital Signs Temp Pulse Resp BP Pulse Ox 11/28/18 11:07 83 14 111/57 L 97 11/28/18 11:01 88 21 170/68 H 97 11/28/18 11:00 89 19 96 11/28/18 10:02 77 22 105/51 L 94 L 11/28/18 10:00 73 16 96 11/28/18 09:16 79 18 81/43 L 95 11/28/18 09:00 85 16 94 L 11/28/18 08:00 97 F L 76 18 120/78 96 11/28/18 07:57 73 13 117/60 97 Intake and Output (Last 8hrs): Intake & Output 11/27/18 11/28/18 11/28/18 22:59 06:59 14:59 Intake Total 700.6 322.8 875.4 Output Total 700 600 600 Balance 0.6 -277.2 275.4 Weight 255 lb 3.2 oz Intake: IV 100 150 Intake, IV Amount 120.6 172.8 35.4 Right Forearm 21 27 3 Right Hand 99.6 145.8 32.4 Oral 480 840 Output: Urine 700 600 600 Urine, Voided 700 600 600 Other: # Voids Urine, Voided 1 # Bowel Movements 1 - Physical Exam Head: Positive for: Atraumatic, Normocephalic Pupils: Positive for: PERRL Extroacular Muscles: Positive for: EOMI Conjunctiva: Positive for: Normal Mouth: Positive for: Moist Mucous Membranes Neck: Positive for: Normal Range of Motion. Negative for: JVD, Lymphadenopathy Respiratory/Chest: Positive for: Clear to Auscultation, Good Air Exchange. Negative for: Respiratory Distress, Accessory Muscle Use, Wheezes, Rales, Rhonchi Cardiovascular: Positive for: Regular Rate and Rhythm, Normal S1, S2. Negative for: Murmurs, Rub, Gallop Abdomen: Positive for: Normal Bowel Sounds. Negative for: Tenderness, Distention, Mass/Organomegaly Upper Extremity: Positive for: Normal Inspection, Normal ROM, NORMAL PULSES, Neurovascularly Intact, Capillary Refill < 2s. Negative for: Cyanosis, Edema Lower Extremity: Positive for: Normal Inspection, NORMAL PULSES, Normal ROM, Neurovascularly Intact, Capillary Refill < 2 s. Negative for: Edema Neurological: Positive for: GCS=15, CN II-XII Intact, Speech Normal Skin: Positive for: Warm, Dry, Normal Color - Medications Active Medications: Active Medications Generic Name Dose Route Start Last Admin Trade Name Freq PRN Reason Stop Dose Admin Albuterol 2 puff 11/27/18 12:15 Ventolin Hfa 90 Mcg/Actuation (8 G) IH RQID PRN Shortness of Breath Albuterol Sulfate 1.25 mg 11/27/18 15:15 11/28/18 00:00 Albuterol 0.042% Inhal Lilia (1.25mg/3ml) Ud INH 1.25 mg RQ8 JADE Administration Aspirin 81 mg 11/27/18 12:30 11/27/18 13:27 Ecotrin PO 81 mg DAILY JADE Administration Clopidogrel Bisulfate 75 mg 11/28/18 10:00 Plavix PO DAILY JADE Dextrose 0 ml 11/27/18 18:07 Dextrose 50% Inj IV STAT PRN Hypoglycemia Protocol Protocol Dextrose 0 gm 11/27/18 18:07 Glutose 15 PO ONCE PRN Hypoglycemia Protocol Protocol Enalapril Maleate 5 mg 11/28/18 10:00 Vasotec PO DAILY JADE Famotidine 20 mg 11/28/18 10:00 Pepcid PO BID JADE Finasteride 5 mg 11/27/18 15:15 11/27/18 17:01 Proscar PO 5 mg DAILY JADE Administration Furosemide 40 mg 11/27/18 18:00 11/27/18 17:08 Lasix PO Not Given BID JADE Glimepiride 4 mg 11/27/18 12:30 11/27/18 13:27 Amaryl PO 4 mg DAILY JADE Administration Glucagon 0 mg 11/27/18 18:07 Glucagen Diagnostic Kit IM STAT PRN Hypoglycemia Protocol Protocol Home Med 1.8 mg 11/27/18 12:30 Liraglutide [Victoza 3-Guido] SC DAILY JADE Home Med 5 ml 11/27/18 12:15 Promethazine Hcl/Codeine [Prometh-Codein 6.25-10 Mg/5 Ml] PO PRN PRN Cough Home Med 1 puff 11/27/18 12:30 Umeclidinium [place] [Incruse Ellipta] IH DAILY JADE Heparin Sodium/Sodium Chloride 25,000 units in 250 mls @ 13.88 mls/hr 11/27/18 12:30 11/28/18 06:25 Heparin 70566 Units/250ml 1/2 Normal Saline IV 14 units/kg/hr .Q18H1M PRN 16.193 mls/hr ADJUST RATE PER PROTOCOL Administration Protocol 12 UNITS/KG/HR Dextrose 1,000 mls @ 0 mls/hr 11/27/18 18:07 Dextrose 5% In Water 1000 Ml IV .Q0M PRN Hypoglycemia Protocol Protocol Per Protocol Insulin Human Regular 0 unit 11/27/18 22:00 11/28/18 08:18 Novolin R SC 2 units ACHS JADE Administration Protocol Isosorbide Mononitrate 60 mg 11/27/18 12:30 Imdur Er PO DAILY JADE Ketoconazole gm 11/27/18 18:00 Nizoral TOP BID JADE Lactic Acid 1 gm 11/27/18 18:00 11/27/18 17:03 Lac-Hydrin 12% Lotion (225 G) TOP 1 applic BID JADE Administration Lactulose 10 gm 11/27/18 12:15 Generlac MS DAILY PRN Constipation Metformin HCl 1,000 mg 11/27/18 17:00 11/27/18 17:03 Glucophage PO 1,000 mg BIDCC JADE Administration Metoclopramide HCl 5 mg 11/27/18 10:45 11/28/18 07:12 Reglan IVP Not Given Q6H JADE Metoprolol Succinate 25 mg 11/27/18 12:30 11/27/18 13:27 Toprol Xl PO 25 mg DAILY JADE Administration Montelukast Sodium 10 mg 11/27/18 14:00 11/27/18 13:26 Singulair PO 10 mg DAILY JADE Administration Pantoprazole Sodium 40 mg 11/28/18 10:00 Protonix Ec Tab PO DAILY JADE Potassium Chloride 10 meq 11/27/18 15:15 11/27/18 17:05 Klor-Con 10 PO 10 meq DAILY JADE Administration Ranolazine 1,000 mg 11/27/18 18:00 11/27/18 17:04 Ranexa PO 1,000 mg BID JADE Administration Rosuvastatin Calcium 40 mg 11/27/18 22:00 11/27/18 21:07 Crestor PO 40 mg HS JADE Administration Sucralfate 1 gm 11/28/18 10:00 Carafate Oral Susp PO QID JADE Tamsulosin HCl 0.4 mg 11/27/18 12:30 11/27/18 13:27 Flomax PO 0.4 mg DAILY JADE Administration Ticagrelor 90 mg 11/27/18 18:00 Brilinta PO BID JADE Vitamin B Complex/Folic Acid 1 tab 11/28/18 10:00 Berroca PO DAILY [facility] - Patient Studies Lab Studies: Lab Studies 11/28/18 11/28/18 11/28/18 Range/Units 07:51 03:53 03:53 WBC 9.2 (4.8-10.8) K/uL RBC 4.15 L (4.40-5.90) Mil/uL Hgb 12.0 (12.0-18.0) g/dL Hct 36.9 (35.0-51.0) % MCV 88.9 (80.0-94.0) fL MCH 28.9 (27.0-31.0) pg MCHC 32.5 L (33.0-37.0) g/dL RDW 15.6 H (11.5-14.5) % Plt Count 302 (130-400) K/uL MPV 8.0 (7.2-11.7) fL Neut % (Auto) 65.0 (50.0-75.0) % Lymph % (Auto) 21.4 (20.0-40.0) % Bremer % (Auto) 8.7 (0.0-10.0) % Eos % (Auto) 4.2 H (0.0-4.0) % Baso % (Auto) 0.7 (0.0-2.0) % Neut # (Auto) 6.0 (1.8-7.0) K/uL Lymph # (Auto) 2.0 (1.0-4.3) K/uL Bremer # (Auto) 0.8 (0.0-0.8) K/uL Eos # (Auto) 0.4 (0.0-0.7) K/uL Baso # (Auto) 0.1 (0.0-0.2) K/uL Retic Count (0.5-1.5) % PT (9.7-12.2) SECONDS INR APTT 65 H D (21-34) SECONDS Sodium (132-148) mmol/L Potassium (3.6-5.2) mmol/L Chloride (98-107) mmol/L Carbon Dioxide (22-30) mmol/L Anion Gap (10-20) BUN (9-20) mg/dL Creatinine (0.8-1.5) mg/dL Est GFR ( Amer) Est GFR (Non-Af Amer) POC Glucose (mg/dL) 158 H (65-110) mg/dL Random Glucose (75-110) mg/dL Calcium (8.6-10.4) mg/dl Phosphorus (2.5-4.5) mg/dL Magnesium (1.6-2.3) mg/dL Total Bilirubin (0.2-1.3) mg/dL AST (17-59) U/L ALT (21-72) U/L Alkaline Phosphatase (38-126) U/L Total Creatine Kinase (55-170) U/L CK-MB (Mass) (0.0-3.38) ng/mL Troponin I (0.00-0.120) ng/mL Total Protein (6.3-8.3) g/dL Albumin (3.5-5.0) g/dL Globulin (2.2-3.9) gm/dL Albumin/Globulin Ratio (1.0-2.1) Alpha Fetoprotein (0.0-7.5) ng/mL Carcinoembryonic Ag (0-3.0) ng/mL Urine Color (YELLOW) Urine Clarity (Clear) Urine pH (5.0-8.0) Ur Specific [place]wl (1.003-1.030) Urine Protein (NEGATIVE) mg/dL Urine Glucose (UA) (Normal) mg/dL Urine Ketones (NEGATIVE) mg/dL Urine Blood (NEGATIVE) Urine Nitrate (NEGATIVE) Urine Bilirubin (NEGATIVE) Urine Urobilinogen (0.2-1.0) mg/dL Ur Leukocyte Esterase (Negative) Jada/uL Urine WBC (Auto) (0-5) /hpf Ur Squamous Epith Cells (0-5) /hpf 11/28/18 11/27/18 11/27/18 Range/Units 03:53 21:05 20:05 WBC (4.8-10.8) K/uL RBC (4.40-5.90) Mil/uL Hgb (12.0-18.0) g/dL Hct (35.0-51.0) % MCV (80.0-94.0) fL MCH (27.0-31.0) pg MCHC (33.0-37.0) g/dL RDW (11.5-14.5) % Plt Count (130-400) K/uL MPV (7.2-11.7) fL Neut % (Auto) (50.0-75.0) % Lymph % (Auto) (20.0-40.0) % Bremer % (Auto) (0.0-10.0) % Eos % (Auto) (0.0-4.0) % Baso % (Auto) (0.0-2.0) % Neut # (Auto) (1.8-7.0) K/uL Lymph # (Auto) (1.0-4.3) K/uL Bremer # (Auto) (0.0-0.8) K/uL Eos # (Auto) (0.0-0.7) K/uL Baso # (Auto) (0.0-0.2) K/uL Retic Count (0.5-1.5) % PT (9.7-12.2) SECONDS INR APTT 40 H D (21-34) SECONDS Sodium 135 (132-148) mmol/L Potassium 4.1 (3.6-5.2) mmol/L Chloride 99 (98-107) mmol/L Carbon Dioxide 28 (22-30) mmol/L Anion Gap 12 (10-20) BUN 16 (9-20) mg/dL Creatinine 0.7 L (0.8-1.5) mg/dL Est GFR ( Amer) > 60 Est GFR (Non-Af Amer) > 60 POC Glucose (mg/dL) 153 H (65-110) mg/dL Random Glucose 119 H (75-110) mg/dL Calcium 9.3 (8.6-10.4) mg/dl Phosphorus 4.7 H (2.5-4.5) mg/dL Magnesium 1.9 (1.6-2.3) mg/dL Total Bilirubin 0.6 (0.2-1.3) mg/dL AST 25 (17-59) U/L ALT 21 D (21-72) U/L Alkaline Phosphatase 92 (38-126) U/L Total Creatine Kinase 33 L (55-170) U/L CK-MB (Mass) 0.70 (0.0-3.38) ng/mL Troponin I 0.0170 (0.00-0.120) ng/mL Total Protein 7.7 (6.3-8.3) g/dL Albumin 4.2 (3.5-5.0) g/dL Globulin 3.6 (2.2-3.9) gm/dL Albumin/Globulin Ratio 1.2 (1.0-2.1) Alpha Fetoprotein (0.0-7.5) ng/mL Carcinoembryonic Ag (0-3.0) ng/mL Urine Color (YELLOW) Urine Clarity (Clear) Urine pH (5.0-8.0) Ur Specific [place] (1.003-1.030) Urine Protein (NEGATIVE) mg/dL Urine Glucose (UA) (Normal) mg/dL Urine Ketones (NEGATIVE) mg/dL Urine Blood (NEGATIVE) Urine Nitrate (NEGATIVE) Urine Bilirubin (NEGATIVE) Urine Urobilinogen (0.2-1.0) mg/dL Ur Leukocyte Esterase (Negative) Jada/uL Urine WBC (Auto) (0-5) /hpf Ur Squamous Epith Cells (0-5) /hpf 11/27/18 11/27/18 11/27/18 Range/Units 20:05 18:28 13:12 WBC (4.8-10.8) K/uL RBC (4.40-5.90) Mil/uL Hgb (12.0-18.0) g/dL Hct (35.0-51.0) % MCV (80.0-94.0) fL MCH (27.0-31.0) pg MCHC (33.0-37.0) g/dL RDW (11.5-14.5) % Plt Count (130-400) K/uL MPV (7.2-11.7) fL Neut % (Auto) (50.0-75.0) % Lymph % (Auto) (20.0-40.0) % Bremer % (Auto) (0.0-10.0) % Eos % (Auto) (0.0-4.0) % Baso % (Auto) (0.0-2.0) % Neut # (Auto) (1.8-7.0) K/uL Lymph # (Auto) (1.0-4.3) K/uL Bremer # (Auto) (0.0-0.8) K/uL Eos # (Auto) (0.0-0.7) K/uL Baso # (Auto) (0.0-0.2) K/uL Retic Count (0.5-1.5) % PT (9.7-12.2) SECONDS INR APTT (21-34) SECONDS Sodium (132-148) mmol/L Potassium (3.6-5.2) mmol/L Chloride (98-107) mmol/L Carbon Dioxide (22-30) mmol/L Anion Gap (10-20) BUN (9-20) mg/dL Creatinine (0.8-1.5) mg/dL Est GFR ( Amer) Est GFR (Non-Af Amer) POC Glucose (mg/dL) 172 H (65-110) mg/dL Random Glucose (75-110) mg/dL Calcium (8.6-10.4) mg/dl Phosphorus (2.5-4.5) mg/dL Magnesium (1.6-2.3) mg/dL Total Bilirubin (0.2-1.3) mg/dL AST (17-59) U/L ALT (21-72) U/L Alkaline Phosphatase (38-126) U/L Total Creatine Kinase 29 L (55-170) U/L CK-MB (Mass) 0.76 (0.0-3.38) ng/mL Troponin I 0.0440 (0.00-0.120) ng/mL Total Protein (6.3-8.3) g/dL Albumin (3.5-5.0) g/dL Globulin (2.2-3.9) gm/dL Albumin/Globulin Ratio (1.0-2.1) Alpha Fetoprotein (0.0-7.5) ng/mL Carcinoembryonic Ag (0-3.0) ng/mL Urine Color Yellow (YELLOW) Urine Clarity Clear (Clear) Urine pH 7.0 (5.0-8.0) Ur Specific [place] 1.019 (1.003-1.030) Urine Protein Negative (NEGATIVE) mg/dL Urine Glucose (UA) Normal (Normal) mg/dL Urine Ketones Negative (NEGATIVE) mg/dL Urine Blood Negative (NEGATIVE) Urine Nitrate Negative (NEGATIVE) Urine Bilirubin Negative (NEGATIVE) Urine Urobilinogen Normal (0.2-1.0) mg/dL Ur Leukocyte Esterase Neg (Negative) Jada/uL Urine WBC (Auto) < 1 (0-5) /hpf Ur Squamous Epith Cells 1 (0-5) /hpf 11/27/18 11/27/18 11/27/18 Range/Units 11:40 11:40 11:40 WBC (4.8-10.8) K/uL RBC (4.40-5.90) Mil/uL Hgb (12.0-18.0) g/dL Hct (35.0-51.0) % MCV (80.0-94.0) fL MCH (27.0-31.0) pg MCHC (33.0-37.0) g/dL RDW (11.5-14.5) % Plt Count (130-400) K/uL MPV (7.2-11.7) fL Neut % (Auto) (50.0-75.0) % Lymph % (Auto) (20.0-40.0) % Bremer % (Auto) (0.0-10.0) % Eos % (Auto) (0.0-4.0) % Baso % (Auto) (0.0-2.0) % Neut # (Auto) (1.8-7.0) K/uL Lymph # (Auto) (1.0-4.3) K/uL Bremer # (Auto) (0.0-0.8) K/uL Eos # (Auto) (0.0-0.7) K/uL Baso # (Auto) (0.0-0.2) K/uL Retic Count (0.5-1.5) % PT 11.5 (9.7-12.2) SECONDS INR 1.1 APTT 26 (21-34) SECONDS Sodium 137 (132-148) mmol/L Potassium 4.5 (3.6-5.2) mmol/L Chloride 97 L (98-107) mmol/L Carbon Dioxide 31 H (22-30) mmol/L Anion Gap 14 (10-20) BUN 18 (9-20) mg/dL Creatinine 0.8 (0.8-1.5) mg/dL Est GFR ( Amer) > 60 Est GFR (Non-Af Amer) > 60 POC Glucose (mg/dL) (65-110) mg/dL Random Glucose 146 H (75-110) mg/dL Calcium 9.4 (8.6-10.4) mg/dl Phosphorus (2.5-4.5) mg/dL Magnesium (1.6-2.3) mg/dL Total Bilirubin 0.8 (0.2-1.3) mg/dL AST 28 (17-59) U/L ALT 28 (21-72) U/L Alkaline Phosphatase 98 (38-126) U/L Total Creatine Kinase (55-170) U/L CK-MB (Mass) (0.0-3.38) ng/mL Troponin I < 0.0120 (0.00-0.120) ng/mL Total Protein 8.4 H (6.3-8.3) g/dL Albumin 4.6 (3.5-5.0) g/dL Globulin 3.8 (2.2-3.9) gm/dL Albumin/Globulin Ratio 1.2 (1.0-2.1) Alpha Fetoprotein 1.1 (0.0-7.5) ng/mL Carcinoembryonic Ag 1.4 (0-3.0) ng/mL Urine Color (YELLOW) Urine Clarity (Clear) Urine pH (5.0-8.0) Ur Specific [place] (1.003-1.030) Urine Protein (NEGATIVE) mg/dL Urine Glucose (UA) (Normal) mg/dL Urine Ketones (NEGATIVE) mg/dL Urine Blood (NEGATIVE) Urine Nitrate (NEGATIVE) Urine Bilirubin (NEGATIVE) Urine Urobilinogen (0.2-1.0) mg/dL Ur Leukocyte Esterase (Negative) Jada/uL Urine WBC (Auto) (0-5) /hpf Ur Squamous Epith Cells (0-5) /hpf 11/27/18 Range/Units 11:40 WBC 9.6 (4.8-10.8) K/uL RBC 4.58 (4.40-5.90) Mil/uL Hgb 13.5 (12.0-18.0) g/dL Hct 41.1 (35.0-51.0) % MCV 89.8 (80.0-94.0) fL MCH 29.4 (27.0-31.0) pg MCHC 32.7 L (33.0-37.0) g/dL RDW 16.1 H (11.5-14.5) % Plt Count 341 (130-400) K/uL MPV 8.4 (7.2-11.7) fL Neut % (Auto) 71.7 (50.0-75.0) % Lymph % (Auto) 17.1 L (20.0-40.0) % Bremer % (Auto) 7.8 (0.0-10.0) % Eos % (Auto) 2.7 (0.0-4.0) % Baso % (Auto) 0.7 (0.0-2.0) % Neut # (Auto) 6.9 (1.8-7.0) K/uL Lymph # (Auto) 1.6 (1.0-4.3) K/uL Bremer # (Auto) 0.8 (0.0-0.8) K/uL Eos # (Auto) 0.3 (0.0-0.7) K/uL Baso # (Auto) 0.1 (0.0-0.2) K/uL Retic Count 1.7 H (0.5-1.5) % PT (9.7-12.2) SECONDS INR APTT (21-34) SECONDS Sodium (132-148) mmol/L Potassium (3.6-5.2) mmol/L Chloride (98-107) mmol/L Carbon Dioxide (22-30) mmol/L Anion Gap (10-20) BUN (9-20) mg/dL Creatinine (0.8-1.5) mg/dL Est GFR ( Amer) Est GFR (Non-Af Amer) POC Glucose (mg/dL) (65-110) mg/dL Random Glucose (75-110) mg/dL Calcium (8.6-10.4) mg/dl Phosphorus (2.5-4.5) mg/dL Magnesium (1.6-2.3) mg/dL Total Bilirubin (0.2-1.3) mg/dL AST (17-59) U/L ALT (21-72) U/L Alkaline Phosphatase (38-126) U/L Total Creatine Kinase (55-170) U/L CK-MB (Mass) (0.0-3.38) ng/mL Troponin I (0.00-0.120) ng/mL Total Protein (6.3-8.3) g/dL Albumin (3.5-5.0) g/dL Globulin (2.2-3.9) gm/dL Albumin/Globulin Ratio (1.0-2.1) Alpha Fetoprotein (0.0-7.5) ng/mL Carcinoembryonic Ag (0-3.0) ng/mL Urine Color (YELLOW) Urine Clarity (Clear) Urine pH (5.0-8.0) Ur Specific [place] (1.003-1.030) Urine Protein (NEGATIVE) mg/dL Urine Glucose (UA) (Normal) mg/dL Urine Ketones (NEGATIVE) mg/dL Urine Blood (NEGATIVE) Urine Nitrate (NEGATIVE) Urine Bilirubin (NEGATIVE) Urine Urobilinogen (0.2-1.0) mg/dL Ur Leukocyte Esterase (Negative) Jada/uL Urine WBC (Auto) (0-5) /hpf Ur Squamous Epith Cells (0-5) /hpf Laboratory Results - last 24 hr 11/27/18 11/27/18 11/27/18 11:40 11:40 11:40 WBC 9.6 RBC 4.58 Hgb 13.5 Hct 41.1 MCV 89.8 MCH 29.4 MCHC 32.7 L RDW 16.1 H Plt Count 341 MPV 8.4 Neut % (Auto) 71.7 Lymph % (Auto) 17.1 L Bremer % (Auto) 7.8 Eos % (Auto) 2.7 Baso % (Auto) 0.7 Neut # (Auto) 6.9 Lymph # (Auto) 1.6 Bremer # (Auto) 0.8 Eos # (Auto) 0.3 Baso # (Auto) 0.1 Retic Count 1.7 H PT 11.5 INR 1.1 APTT 26 Sodium 137 Potassium 4.5 Chloride 97 L Carbon Dioxide 31 H Anion Gap 14 BUN 18 Creatinine 0.8 Est GFR ( Amer) > 60 Est GFR (Non-Af Amer) > 60 POC Glucose (mg/dL) Random Glucose 146 H Calcium 9.4 Phosphorus Magnesium Total Bilirubin 0.8 AST 28 ALT 28 Alkaline Phosphatase 98 Total Creatine Kinase CK-MB (Mass) Troponin I < 0.0120 Total Protein 8.4 H Albumin 4.6 Globulin 3.8 Albumin/Globulin Ratio 1.2 Alpha Fetoprotein Carcinoembryonic Ag 1.4 Urine Color Urine Clarity Urine pH Ur Specific [place] Urine Protein Urine Glucose (UA) Urine Ketones Urine Blood Urine Nitrate Urine Bilirubin Urine Urobilinogen Ur Leukocyte Esterase Urine WBC (Auto) Ur Squamous Epith Cells 11/27/18 11/27/18 11/27/18 11:40 13:12 18:28 WBC RBC Hgb Hct MCV MCH MCHC RDW Plt Count MPV Neut % (Auto) Lymph % (Auto) Bremer % (Auto) Eos % (Auto) Baso % (Auto) Neut # (Auto) Lymph # (Auto) Bremer # (Auto) Eos # (Auto) Baso # (Auto) Retic Count PT INR APTT Sodium Potassium Chloride Carbon Dioxide Anion Gap BUN Creatinine Est GFR ( Amer) Est GFR (Non-Af Amer) POC Glucose (mg/dL) 172 H Random Glucose Calcium Phosphorus Magnesium Total Bilirubin AST ALT Alkaline Phosphatase Total Creatine Kinase CK-MB (Mass) Troponin I Total Protein Albumin Globulin Albumin/Globulin Ratio Alpha Fetoprotein 1.1 Carcinoembryonic Ag Urine Color Yellow Urine Clarity Clear Urine pH 7.0 Ur Specific [place] 1.019 Urine Protein Negative Urine Glucose (UA) Normal Urine Ketones Negative Urine Blood Negative Urine Nitrate Negative Urine Bilirubin Negative Urine Urobilinogen Normal Ur Leukocyte Esterase Neg Urine WBC (Auto) < 1 Ur Squamous Epith Cells 1 11/27/18 11/27/18 11/27/18 20:05 20:05 21:05 WBC RBC Hgb Hct MCV MCH MCHC RDW Plt Count MPV Neut % (Auto) Lymph % (Auto) Bremer % (Auto) Eos % (Auto) Baso % (Auto) Neut # (Auto) Lymph # (Auto) Bremer # (Auto) Eos # (Auto) Baso # (Auto) Retic Count PT INR APTT 40 H D Sodium Potassium Chloride Carbon Dioxide Anion Gap BUN Creatinine Est GFR ( Amer) Est GFR (Non-Af Amer) POC Glucose (mg/dL) 153 H Random Glucose Calcium Phosphorus Magnesium Total Bilirubin AST ALT Alkaline Phosphatase Total Creatine Kinase 29 L CK-MB (Mass) 0.76 Troponin I 0.0440 Total Protein Albumin Globulin Albumin/Globulin Ratio Alpha Fetoprotein Carcinoembryonic Ag Urine Color Urine Clarity Urine pH Ur Specific [place] Urine Protein Urine Glucose (UA) Urine Ketones Urine Blood Urine Nitrate Urine Bilirubin Urine Urobilinogen Ur Leukocyte Esterase Urine WBC (Auto) Ur Squamous Epith Cells 11/28/18 11/28/18 11/28/18 03:53 03:53 03:53 WBC 9.2 RBC 4.15 L Hgb 12.0 Hct 36.9 MCV 88.9 MCH 28.9 MCHC 32.5 L RDW 15.6 H Plt Count 302 MPV 8.0 Neut % (Auto) 65.0 Lymph % (Auto) 21.4 Bremer % (Auto) 8.7 Eos % (Auto) 4.2 H Baso % (Auto) 0.7 Neut # (Auto) 6.0 Lymph # (Auto) 2.0 Bremer # (Auto) 0.8 Eos # (Auto) 0.4 Baso # (Auto) 0.1 Retic Count PT INR APTT 65 H D Sodium 135 Potassium 4.1 Chloride 99 Carbon Dioxide 28 Anion Gap 12 BUN 16 Creatinine 0.7 L Est GFR ( Amer) > 60 Est GFR (Non-Af Amer) > 60 POC Glucose (mg/dL) Random Glucose 119 H Calcium 9.3 Phosphorus 4.7 H Magnesium 1.9 Total Bilirubin 0.6 AST 25 ALT 21 D Alkaline Phosphatase 92 Total Creatine Kinase 33 L CK-MB (Mass) 0.70 Troponin I 0.0170 Total Protein 7.7 Albumin 4.2 Globulin 3.6 Albumin/Globulin Ratio 1.2 Alpha Fetoprotein Carcinoembryonic Ag Urine Color Urine Clarity Urine pH Ur Specific [place] Urine Protein Urine Glucose (UA) Urine Ketones Urine Blood Urine Nitrate Urine Bilirubin Urine Urobilinogen Ur Leukocyte Esterase Urine WBC (Auto) Ur Squamous Epith Cells 11/28/18 07:51 WBC RBC Hgb Hct MCV MCH MCHC RDW Plt Count MPV Neut % (Auto) Lymph % (Auto) Bremer % (Auto) Eos % (Auto) Baso % (Auto) Neut # (Auto) Lymph # (Auto) Bremer # (Auto) Eos # (Auto) Baso # (Auto) Retic Count PT INR APTT Sodium Potassium Chloride Carbon Dioxide Anion Gap BUN Creatinine Est GFR ( Amer) Est GFR (Non-Af Amer) POC Glucose (mg/dL) 158 H Random Glucose Calcium Phosphorus Magnesium Total Bilirubin AST ALT Alkaline Phosphatase Total Creatine Kinase CK-MB (Mass) Troponin I Total Protein Albumin Globulin Albumin/Globulin Ratio Alpha Fetoprotein Carcinoembryonic Ag Urine Color Urine Clarity Urine pH Ur Specific [place]wl Urine Protein Urine Glucose (UA) Urine Ketones Urine Blood Urine Nitrate Urine Bilirubin Urine Urobilinogen Ur Leukocyte Esterase Urine WBC (Auto) Ur Squamous Epith Cells EKG/Cardiology Studies: Cardiology / EKG Studies 11/27/18 12:04 EKG [ELECTROCARDIOGRAM] Stat Comment: Mode Of Transportation: STRETCHER Reason For Exam: stat ekg chest pain Fingerstick Blood Sugar Results: 158 Review of Systems - Constitutional Constitutional: absent: Fever, Chills, Sweats - EENT Eyes: absent: Change in Vision - Cardiovascular Cardiovascular: absent: Chest Pain, Dyspnea on Exertion, Edema, Pain Radiating to Arm/Neck/Jaw, Leg Edema, Palpitations, Syncope - Respiratory Respiratory: absent: Cough, Dyspnea, Wheezing - Gastrointestinal Gastrointestinal: absent: Abdominal Pain, Constipation, Diarrhea, Nausea, Vomiting Critical Care Progress Note - Nutrition Nutrition: Nutrition Category Date Time Status Diabetic [Consistent Carbohydrate] [DIET] Diets 11/28/18 Breakfast Active Assessment/Plan - Assessment and Plan (Free Text) Assessment: This is a 68 y o male with PMhx CAD x6 stents s/p CABG with PAL to LAD and SVG to RCA grafts, AAA, carotid stenosis s/p endarterectomy, HTN, DM, HLD, COPD, and BPH, who presented to [facility] for scheduled outpatient colonoscopy. [employer] REPRESENTATIVE was called in Endoscopy 11/27/18 due to pt c/o acute chest pain. At time of onset, pt went to use restroom and reported to RN that he had chest pain and wanted his Nitroglycerin. At time of [employer]CH[employer] RETAIL REPRESENTATIVE onset, RN reported pt appeared in distress with elevated BP 156/86. Pt was recently discharged from [facility] on 11/15/18 after being treated for CHF exacerbation and found to have occlusion of graft; at that time was given referral to f/u with Dr. Fernando (CT surgeon), states he is scheduled for surgery later this month. EKG during [employer]CH[employer] RETAIL REPRESENTATIVE revealed St/T wave abnormalities, and possible T-wave inversions in lateral leads. Cardiology (Dr. Chapin) was present during [employer] REPRESENTATIVE. Pt was given Nitroglycerin during [employer]CH[employer] RETAIL REPRESENTATIVE with immediate improvement of chest pain symptoms. Reason for ICU consult was for chest pain, possible NSTEMI. Pt stable for downgrade from ICU to telemetry floor at this time. Plan: Neuro: -AAOx3, no gross deficits on exam -Cont to monitor Cardio: -R/o NSTEMI Trops 0.01 => 0.01 => 0.04 => 0.01 Cardiology (Dr. Chapin) consulted, recs appreciated Echo results pending C/w ASA, Briilinta; Plavix d/c'd C/w home med Toprol XL Heparin drip Nitroglycerin drip d/c'd -Hx HTN, CHF, CAD s/p 6 stents s/p CABG with PAL to LAD and SVG to RCA grafts, AAA, carotid stenosis s/p endarterectomy, HLD C/w Vasotec, Lasix, Imdur, Ranexa, Crestor -CXR read by me demonstrates no acute findings, official read pending Pulm: -Hx COPD C/w Ventolin, Albuterol, Singulair GI: -Diabetic diet -Reglan prn for n/v -Protonix -No active bleeding at this time, cont to monitor -Sucralfate added -GI (Dr. Henson) consulted, recs appreciated Renal: -BUN/Cr 16/0.7, pt voiding well, cont to monitor -C/w home meds Proscar and Flomax for BPH Heme: -H/H stable, cont to monitor -No leukocytosis -Cont to monitor Endo: -Hx DM2 Metformin held C/w Glimepiride therapy ISS-med Fingersticks achs Hypoglycemic protocol A1c 6.9 on 11/14/18 PPX: -Heparin drip, Protonix Pt seen, examined with, and plan discussed with Dr. Oralia Durant, attending physician. Christopher Guzman DO PGY-1, [employer] Pager #[phone] <Ashleigh Durant - Last Filed: 11/30/18 15:49> CCU Objective - Vital Signs / Intake & Output Intake and Output (Last 8hrs): Intake & Output 11/30/18 11/30/18 11/30/18 06:59 14:59 22:59 Intake Total 300 Output Total 850 Balance -550 Intake: Oral 300 Output: Urine 850 Urine, Voided 850 - Patient Studies Lab Studies: Microbiology Studies 11/30/18 00:55 MRSA Culture (Admit) - Preliminary Naris MRSA NOT DETECTED Lab Studies 11/30/18 11/30/18 11/29/18 Range/Units 07:47 07:47 21:13 WBC 10.2 (4.8-10.8) K/uL RBC 4.50 (4.40-5.90) Mil/uL Hgb 13.4 (12.0-18.0) g/dL Hct 39.8 (35.0-51.0) % MCV 88.5 (80.0-94.0) fL MCH 29.9 (27.0-31.0) pg MCHC 33.7 (33.0-37.0) g/dL RDW 15.8 H (11.5-14.5) % Plt Count 338 (130-400) K/uL MPV 8.1 (7.2-11.7) fL Neut % (Auto) 73.9 (50.0-75.0) % Lymph % (Auto) 13.9 L (20.0-40.0) % Bremer % (Auto) 9.0 (0.0-10.0) % Eos % (Auto) 2.9 (0.0-4.0) % Baso % (Auto) 0.3 (0.0-2.0) % Neut # (Auto) 7.5 H (1.8-7.0) K/uL Lymph # (Auto) 1.4 (1.0-4.3) K/uL Bremer # (Auto) 0.9 H (0.0-0.8) K/uL Eos # (Auto) 0.3 (0.0-0.7) K/uL Baso # (Auto) 0.0 (0.0-0.2) K/uL Sodium 136 (132-148) mmol/L Potassium 4.6 (3.6-5.2) mmol/L Chloride 95 L (98-107) mmol/L Carbon Dioxide 29 (22-30) mmol/L Anion Gap 16 (10-20) BUN 22 H (9-20) mg/dL Creatinine 0.9 (0.8-1.5) mg/dL Est GFR ( Amer) > 60 Est GFR (Non-Af Amer) > 60 POC Glucose (mg/dL) 171 H (65-110) mg/dL Random Glucose 188 H D (75-110) mg/dL Calcium 9.6 (8.6-10.4) mg/dl Phosphorus 4.8 H (2.5-4.5) mg/dL Magnesium 1.7 (1.6-2.3) mg/dL Total Bilirubin 0.8 (0.2-1.3) mg/dL AST 41 (17-59) U/L ALT 20 L (21-72) U/L Alkaline Phosphatase 99 (38-126) U/L Total Protein 8.4 H (6.3-8.3) g/dL Albumin 4.7 (3.5-5.0) g/dL Globulin 3.7 (2.2-3.9) gm/dL Albumin/Globulin Ratio 1.3 (1.0-2.1) 11/29/18 11/29/18 Range/Units 16:13 11:08 WBC (4.8-10.8) K/uL RBC (4.40-5.90) Mil/uL Hgb (12.0-18.0) g/dL Hct (35.0-51.0) % MCV (80.0-94.0) fL MCH (27.0-31.0) pg MCHC (33.0-37.0) g/dL RDW (11.5-14.5) % Plt Count (130-400) K/uL MPV (7.2-11.7) fL Neut % (Auto) (50.0-75.0) % Lymph % (Auto) (20.0-40.0) % Bremer % (Auto) (0.0-10.0) % Eos % (Auto) (0.0-4.0) % Baso % (Auto) (0.0-2.0) % Neut # (Auto) (1.8-7.0) K/uL Lymph # (Auto) (1.0-4.3) K/uL Bremer # (Auto) (0.0-0.8) K/uL Eos # (Auto) (0.0-0.7) K/uL Baso # (Auto) (0.0-0.2) K/uL Sodium (132-148) mmol/L Potassium (3.6-5.2) mmol/L Chloride (98-107) mmol/L Carbon Dioxide (22-30) mmol/L Anion Gap (10-20) BUN (9-20) mg/dL Creatinine (0.8-1.5) mg/dL Est GFR ( Amer) Est GFR (Non-Af Amer) POC Glucose (mg/dL) 202 H 251 H (65-110) mg/dL Random Glucose (75-110) mg/dL Calcium (8.6-10.4) mg/dl Phosphorus (2.5-4.5) mg/dL Magnesium (1.6-2.3) mg/dL Total Bilirubin (0.2-1.3) mg/dL AST (17-59) U/L ALT (21-72) U/L Alkaline Phosphatase (38-126) U/L Total Protein (6.3-8.3) g/dL Albumin (3.5-5.0) g/dL Globulin (2.2-3.9) gm/dL Albumin/Globulin Ratio (1.0-2.1) Laboratory Results - last 24 hr 11/29/18 11/29/18 11/29/18 11:08 16:13 21:13 WBC RBC Hgb Hct MCV MCH MCHC RDW Plt Count MPV Neut % (Auto) Lymph % (Auto) Bremer % (Auto) Eos % (Auto) Baso % (Auto) Neut # (Auto) Lymph # (Auto) Bremer # (Auto) Eos # (Auto) Baso # (Auto) Sodium Potassium Chloride Carbon Dioxide Anion Gap BUN Creatinine Est GFR ( Amer) Est GFR (Non-Af Amer) POC Glucose (mg/dL) 251 H 202 H 171 H Random Glucose Calcium Phosphorus Magnesium Total Bilirubin AST ALT Alkaline Phosphatase Total Protein Albumin Globulin Albumin/Globulin Ratio 11/30/18 11/30/18 07:47 07:47 WBC 10.2 RBC 4.50 Hgb 13.4 Hct 39.8 MCV 88.5 MCH 29.9 MCHC 33.7 RDW 15.8 H Plt Count 338 MPV 8.1 Neut % (Auto) 73.9 Lymph % (Auto) 13.9 L Bremer % (Auto) 9.0 Eos % (Auto) 2.9 Baso % (Auto) 0.3 Neut # (Auto) 7.5 H Lymph # (Auto) 1.4 Bremer # (Auto) 0.9 H Eos # (Auto) 0.3 Baso # (Auto) 0.0 Sodium 136 Potassium 4.6 Chloride 95 L Carbon Dioxide 29 Anion Gap 16 BUN 22 H Creatinine 0.9 Est GFR ( Amer) > 60 Est GFR (Non-Af Amer) > 60 POC Glucose (mg/dL) Random Glucose 188 H D Calcium 9.6 Phosphorus 4.8 H Magnesium 1.7 Total Bilirubin 0.8 AST 41 ALT 20 L Alkaline Phosphatase 99 Total Protein 8.4 H Albumin 4.7 Globulin 3.7 Albumin/Globulin Ratio 1.3 Critical Care Progress Note - Nutrition Nutrition: Nutrition Category Date Time Status Diabetic [Consistent Carbohydrate] [DIET] Diets 11/28/18 Breakfast Active Assessment/Plan - Assessment and Plan (Free Text) Plan: Patient seen and examined at bedside. patient remains hemodynamically stable -tolerating oral diet -continue treatment as per cardiology and Gi. -Patient sitting up in bed -tolerating oral diet and medicaitons -remains hemodynamically stable - Date & Time Date: 11/28/18 Time: 17:00
[2018-11-28] MEDS: Ranolazine 500 mg Extended Release Tablets PO SCH ×2 (13:06→17:54)
[2018-11-28] MEDS: Sucralfate 1 gm/10 ml Oral Susp UD PO SCH ×3 (13:15→21:23)
[2018-11-28] MEDS: Ammonium Lactate 12% Lotion (225 g) TOP SCH ×2 (13:22→18:11)
--- NOTE | 2018-11-28 13:54 | PN ---
DATE: 11/28/2018 LOCATION: ICU 8. SUBJECTIVE: This 68-year-old male was admitted as per my request after having episodes of chest pain prior to colonoscopy yesterday. The patient was not getting any medication. No procedure was done yesterday. Due to the patient's condition, the colonoscopy is to be completely canceled and rescheduled some other time once the patient is more clear from the cardiology point of view. The entire chart is reviewed including but not limited to the most recent lab and radiology study results, current and the previous medication list. LABORATORY DATA: Today's CBC is normal with PTT of 65, blood glucose level 264 with reported increase of phosphorus at 4.7. Rest of the lab results including troponin 1 is normal. PHYSICAL EXAMINATION: GENERAL: A 68-year-old male, awake, alert, oriented. VITAL SIGNS: Afebrile with pulse of 80, respiratory rate 20-22, blood pressure 124/60. HEENT: Showed pale dry oral mucous membrane. Nonicteric sclerae. LUNGS: Few scattered crepitation. Decreased air entry at bases. HEART: Positive S1 and S2. ABDOMEN: Soft. Bowel sounds are present. No mass or organomegaly. No rebound tenderness or guarding. EXTREMITIES: Without significant clubbing, cyanosis or edema. NEUROLOGIC: No reported new neurological deficits, sensory or motor. The patient denies any underlying chest pain. IMPRESSION: 1. Re-exacerbation of peptic ulcer disease. 2. Chest pain, cardiac versus noncardiac. 3. Known history of hypertension, poorly controlled diabetes mellitus, hyperlipidemia, chronic obstructive pulmonary disease, coronary artery disease status post cardiac stent as well as status post coronary artery bypass graft, benign prostatic hypertrophy. SUGGESTIONS: 1. Continue current management. 2. Cancer markers. 3. Close observation. The patient to be rescheduled for colonoscopy after clear and complete cardiology evaluation. Mindy Childers MD
[2018-11-28] MEDS: Albuterol 0.042% Inhal Sol (1.25 mg/3 mL) UD INH SCH ×3 (14:31→15:51)
--- NOTE | 2018-11-28 17:12 | CARD ---
APPROVED REPORT Date of service: 11/28/2018 EXAM: Two-dimensional and M-mode echocardiogram. Other Information Quality : TDSRhythm : 2D DIMENSIONS IVSd1.0 (0.7-1.1cm)LVDd6.1 (3.9-5.9cm) PWd1.2 (0.7-1.1cm)LVDs4.5 (2.5-4.0cm) FS (%) 26.2 %LVEF (%)50.5 (>50%) LVEF (Boyle's)51.14 % M-Mode DIMENSIONS IVSd1.07 (0.7-1.1cm)LVDd5.87 (4.0-5.6cm) PWd1.15 (0.7-1.1cm)FS (%) 29 % LVDs4.16 (2.0-3.8cm)LVEF (%)50 (>50%) Mitral Valve E/A ratio0.0 TDI E/Lateral E'0.0E/Medial E'0.0 AORTIC VALVE The aortic valve is mildly to moderately sclerotic. The aortic valve is tri-cuspid. open well MITRAL VALVE The mitral valve is normal in structure. There is no evidence of mitral valve prolapse. <Conclusion> Suboptimal study, poor window repat for LV function No Doppler mildly depressed contractility EF 50-55%, unable to comment on the segmental waal motion
[2018-11-29] MEDS: Albuterol 0.042% Inhal Sol (1.25 mg/3 mL) UD INH SCH ×3 (01:47→16:52)
[2018-11-29 06:00] LABS: BASO % 0.5 % (0.0-2.0); EOS # 0.3 K/uL (0.0-0.7); HEMOGLOBIN 12.3 g/dL (12.0-18.0); LYMPH # 1.7 K/uL (1.0-4.3); LYMPH % 18.2 % (20.0-40.0); MEAN CELL VOLUME 89.6 fL (80.0-94.0); MEAN CORPUSCULAR HEMOGLOBIN 29.7 pg (27.0-31.0); MEAN CORPUSCULAR HGB CONC 33.2 g/dL (33.0-37.0); MEAN PLATELET VOLUME 8.2 fL (7.2-11.7); MONO # 0.9 K/uL (0.0-0.8); MONO % 9.6 % (0.0-10.0); NEUT # 6.6 K/uL (1.8-7.0); NEUT % 68.7 % (50.0-75.0); RBC 4.14 Mil/uL (4.40-5.90); RED CELL DISTRIBUTION WIDTH 15.9 % (11.5-14.5); WHITE BLOOD COUNT 9.6 K/uL (4.8-10.8)
[2018-11-29 06:25] LABS: ALB/GLOB RATIO 1.4 (1.0-2.1); ALBUMIN 4.4 g/dL (3.5-5.0); ALT/SGPT 19 U/L (21-72); AST/SGOT 26 U/L (17-59); BLOOD UREA NITROGEN 18 mg/dL (9-20); CALCIUM 9.3 mg/dl (8.6-10.4); GFR NON-AFRICAN AMERICAN > 60
[2018-11-29] MEDS: (Novolin R) Insulin Human Regular 100 units/ml vial SC SCH ×4 (07:56→21:37)
[2018-11-29] MEDS: Sucralfate 1 gm/10 ml Oral Susp UD PO SCH ×4 (09:26→21:30)
[2018-11-29] MEDS: Metoprolol Succinate 25 mg XL Tab PO SCH (09:26)
[2018-11-29] MEDS: Potassium Chloride 10 mEq ER Tab PO SCH (09:28)
[2018-11-29] MEDS: Ranolazine 500 mg Extended Release Tablets PO SCH ×2 (09:30→17:46)
[2018-11-29] MEDS: Ammonium Lactate 12% Lotion (225 g) TOP SCH ×2 (09:38→17:41)
--- NOTE | 2018-11-29 10:09 | PN ---
DATE: 11/29/2018 LOCATION: ICU 8. SUBJECTIVE: This is a 68-year-old male, very well known case for me, seen early in rounds without significant clinical changes or reported active bleeding, still on heparin drip with no reported actual chest pain at this time. The entire chart is reviewed including but not limited to the most recent lab and radiology study results, current and the previous medication list, current and the previous medical events. Case discussed with the staff at length. Today's lab results showed normal CBC with low creatinine of 0.8. Blood glucose level 154, phosphorus 4.6 with normal liver function tests. Patient troponin level had been stable since admission and all the reported cancer markers are normal. Case was discussed with the staff at length at the time of my physical examination. PHYSICAL EXAMINATION: GENERAL: A 68-year-old male, awake, alert and oriented. Denied any chest pain, palpitation, significant shortness of breath. VITAL SIGNS: Afebrile with heart rate of 82, respiratory rate of 16-20, blood pressure of 116/54. HEENT: Showed pale dry oral mucous membrane. Nonicteric sclerae. LUNGS: Few scattered crepitation. Decreased air entry at bases. HEART: Positive S1 and S2. ABDOMEN: Soft with mild generalized tenderness. No mass or organomegaly. No rebound tenderness or guarding. EXTREMITIES: Without significant clubbing, cyanosis or edema. NEUROLOGIC: No reported new neurological deficits, sensory or motor. IMPRESSION: 1. Re-exacerbation of peptic ulcer disease. 2. Chest pain, cardiac versus noncardiac. 3. Known history of coronary artery disease status post coronary artery bypass graft, poorly controlled diabetes mellitus, history of hypertension with chronic obstructive pulmonary disease as well as status post cardiac stent insertion before. 4. Known history of benign prostatic hypertrophy. 5. Recent change of bowel movement habit of unclear etiology. SUGGESTIONS: 1. Continue current management. 2. Hold any aggressive GI workup in the meantime until the patient is more stable clinically and after complete cardiac workup and clearance. 3. Further recommendation to follow. Mindy Childers MD
--- NOTE | 2018-11-29 12:39 | CP.PCM.CON ---
History of Present Illness - History of Present Illness History of Present Illness: Dr. Chapin has asked me to see this patient: This is a 68 y o male with PMhx CAD x6 stents s/p CABG with PAL to LAD and SVG to RCA grafts, AAA, carotid stenosis s/p endarterectomy, HTN, DM, HLD, COPD, and BPH, who presented to [facility] for scheduled outpatient colonoscopy. [facility] was called in Endoscopy today due to pt c/o acute chest pain. At time of onset, pt went to use restroom and reported to RN that he had chest pain and wanted his Nitroglycerin. At time of [facility] [facility] [employer] [facility] onset, RN reported pt appeared in distress with elevated BP 156/86. Pt was recently discharged from [facility] on 11/15/18 after being treated for CHF exacerbation and found to have occlusion of graft; at that time was given referral to f/u with Dr. Fernando (CT surgeon), states he is scheduled for surgery later this month. EKG during [facility] [facility] revealed St/T wave abnormalities, and possible T-wave inversions in lateral leads. Cardiology (Dr. Chapin) was present during [facility]. Pt was given Nitroglycerin during [facility] [facility] with immediate improvement of chest pain symptoms. Reason for ICU consult was for NSTEMI. PMH: CAD x 6 stents s/p CABG with PAL to LAD and SVG to RCA grafts, AAA, carotid stenosis s/p endarterectomy, HTN, DM, HLD, COPD, BPH All: NKDA PSH: CABG SH: 1/2 pack smoker x 20 years FH: F: CAD, LA, DM Review of Systems - Review of Systems All systems: reviewed and no additional remarkable complaints except Past Patient History - Infectious Disease Hx of Infectious Diseases: None - Tetanus Immunizations Tetanus Immunization: Unknown - Past Medical History & Family History Past Medical History?: Yes - Past Social History Smoking Status: Former Smoker - CARDIAC Hx Cardiac Disorders: Yes (cp, mi 1998, aaa, cad) Hx Angina: Yes Hx Cardia Arrhythmia: Yes Hx Congestive Heart Failure: Yes Hx Heart Attack: Yes (1998) Hx Hypercholesterolemia: Yes Hx Hypertension: Yes Hx Peripheral Edema: Yes (ble +1) Hx Peripheral Vascular Disease: Yes Other/Comment: cabg 1998 [facility] - PULMONARY Hx Respiratory Disorders: Yes Hx Asthma: Yes Hx Chronic Obstructive Pulmonary Disease (COPD): Yes Hx Sleep Apnea: Yes (does not use his cpap) Other/Comment: pt does not use his cpap c/o he has nose and throat problem - NEUROLOGICAL Hx Neurological Disorder: Yes HX Cerebrovascular Accident: Yes (2018) Hx Dizziness: Yes Other/Comment: pt was in [employer] [place] and wound up in [facility] had left carotid sx stated they "cleaned it out. It was 99% blocked.", numbness feet and legs - HEENT Hx HEENT Problems: Yes Hx Cataracts: Yes (Bilateral Cataract surgery) Hx Deafness: Yes (L ear sx, piece of metal) Hx Glaucoma: Yes Other/Comment: LASER SURGERY FOR GLAUCOMA. SURGERY FOR TRAUMA TO LEFT EAR, work related, was working and metal flew into eardrum, hearing impaired left ear - RENAL Hx Chronic Kidney Disease: No - ENDOCRINE/METABOLIC Hx Endocrine Disorders: Yes Hx Diabetes Mellitus Type 1: Yes Hx Diabetes Mellitus Type 2: Yes - HEMATOLOGICAL/ONCOLOGICAL Hx Blood Disorders: No - INTEGUMENTARY Hx Dermatological Problems: Yes Other/Comment: lle scaley dry skin dry scabs +1 edema, dry thick toenails both feet, rle +1 edema multiple skin discolorations, +1 pitting edema both feet - MUSCULOSKELETAL/RHEUMATOLOGICAL Hx Musculoskeletal Disorders: Yes (pinched nerve back) Hx Arthritis: Yes (r knee pain) Hx Back Pain: Yes (chronic cervical and lumbar) Hx Falls: Yes (r leg gives out) Hx Fractures: Yes Hx Herniated Disk: Yes (cervical and lumbar spine) Hx Unsteady Gait: Yes (cane) Other/Comment: chronic right knee pain, chronic back pain takes steroid shots to right knee and back - GASTROINTESTINAL Hx Gastrointestinal Disorders: Yes (upper gi bleed, obese) Hx Ulcer: Yes Other/Comment: HX: ABDOMINAL AORITIC ANEURYSM- NO SURGERY - GENITOURINARY/GYNECOLOGICAL Hx Genitourinary Disorders: Yes Hx Prostate Problems: Yes (BPH) Other/Comment: Takes Flomax - PSYCHIATRIC Hx Psychophysiologic Disorder: No Hx Anxiety: Yes Hx Depression: Yes Hx Substance Use: No - SURGICAL HISTORY Hx Surgeries: Yes Hx Cataract Extraction: Yes Hx Cardiac Catheterization: Yes Hx Coronary Artery Bypass Graft: Yes (x2) Hx Coronary Stent: Yes Hx Eye Surgery: Yes (CAMILA) Hx Musculoskeletal Surgery: Yes Hx Open Heart Surgery: Yes Hx Open Reduction Internal Fixation: Yes (RIGHT LEG) Hx Orthopedic Surgery: Yes (RIGHT KNEE TO LOWER LEG WITH MARGARET PLACED AFTER FX.) Other/Comment: pt fell about 6 yrs ago orif right knee to lower leg with margaret at [facility] - ANESTHESIA Hx Anesthesia: Yes Hx Anesthesia Reactions: No Hx Malignant Hyperthermia: No Meds Allergies/Adverse Reactions: Allergies Allergy/AdvReac Type Severity Reaction Status Date / Time No Known Allergies Allergy Verified 11/27/18 07:51 - Medications Medications: Current Medications Albuterol (Ventolin Hfa 90 Mcg/Actuation (8 G)) 2 puff IH RQID PRN PRN Reason: Shortness of Breath Albuterol Sulfate (Albuterol 0.042% Inhal Lilia (1.25mg/3ml) Ud) 1.25 mg INH RQ8 [facility] Last Admin: 11/29/18 07:56 Dose: 1.25 mg Aspirin (Ecotrin) 81 mg PO DAILY [facility] Last Admin: 11/29/18 09:28 Dose: 81 mg Dextrose (Dextrose 50% Inj) 0 ml IV STAT PRN; Protocol PRN Reason: Hypoglycemia Protocol Dextrose (Glutose 15) 0 gm PO ONCE PRN; Protocol PRN Reason: Hypoglycemia Protocol Enalapril Maleate (Vasotec) 5 mg PO DAILY [facility] Last Admin: 11/29/18 09:27 Dose: 5 mg Famotidine (Pepcid) 20 mg PO BID [facility] Last Admin: 11/29/18 09:29 Dose: 20 mg Finasteride (Proscar) 5 mg PO DAILY [facility] Last Admin: 11/29/18 09:32 Dose: 5 mg Furosemide (Lasix) 40 mg PO BID [facility] Last Admin: 11/29/18 09:29 Dose: 40 mg Glimepiride (Amaryl) 4 mg PO DAILY [facility] Last Admin: 11/29/18 09:28 Dose: 4 mg Glucagon (Glucagen Diagnostic Kit) 0 mg IM STAT PRN; Protocol PRN Reason: Hypoglycemia Protocol Dextrose (Dextrose 5% In Water 1000 Ml) 1,000 mls @ 0 mls/hr IV .Q0M PRN; Protocol PRN Reason: Hypoglycemia Protocol Insulin Human Regular (Novolin R) 0 unit SC ACHS [facility]; Protocol Last Admin: 11/29/18 11:34 Dose: 4 units Isosorbide Mononitrate (Imdur) 60 mg PO DAILY [facility] Last Admin: 11/29/18 09:32 Dose: 60 mg Ketoconazole (Nizoral) 0 gm TOP BID [facility] Last Admin: 11/29/18 09:25 Dose: 1 applic Lactic Acid (Lac-Hydrin 12% Lotion (225 G)) 1 gm TOP BID [facility] Last Admin: 11/29/18 09:38 Dose: 1 applic Lactulose (Enulose) 20 gm PO HS [facility] Last Admin: 11/28/18 21:23 Dose: 20 gm Metformin HCl (Glucophage) 1,000 mg PO BIDCC [facility] Last Admin: 11/27/18 17:03 Dose: 1,000 mg Metoclopramide HCl (Reglan) 5 mg IVP Q6H [facility] Last Admin: 11/29/18 09:44 Dose: 5 mg Metoprolol Succinate (Toprol Xl) 25 mg PO DAILY [facility] Last Admin: 11/29/18 09:26 Dose: 25 mg Montelukast Sodium (Singulair) 10 mg PO DAILY [facility] Last Admin: 11/29/18 09:27 Dose: 10 mg Potassium Chloride (Klor-Con 10) 10 meq PO DAILY [facility] Last Admin: 11/29/18 09:28 Dose: 10 meq Ranolazine (Ranexa) 1,000 mg PO BID [facility] Last Admin: 11/29/18 09:30 Dose: 1,000 mg Rosuvastatin Calcium (Crestor) 40 mg PO HS [facility] Last Admin: 11/28/18 21:24 Dose: 40 mg Sucralfate (Carafate Oral Susp) 1 gm PO QID [facility] Last Admin: 11/29/18 09:26 Dose: 1 gm Tamsulosin HCl (Flomax) 0.4 mg PO DAILY [facility] Last Admin: 11/29/18 09:26 Dose: 0.4 mg Ticagrelor (Brilinta) 90 mg PO BID [facility] Last Admin: 11/29/18 09:30 Dose: 90 mg Vitamin B Complex/Folic Acid (Berroca) 1 tab PO DAILY [facility] Last Admin: 11/29/18 09:30 Dose: 1 tab Physical Exam - Constitutional Appears: No Acute Distress (obese) - Head Exam Head Exam: ATRAUMATIC, NORMAL INSPECTION, NORMOCEPHALIC - Eye Exam Eye Exam: EOMI, Normal appearance - ENT Exam ENT Exam: Mucous Membranes Moist, Normal Oropharynx - Neck Exam Neck exam: Positive for: Full Rom, Normal Inspection (L. CEA scar). Negative for: Tenderness - Respiratory Exam Respiratory Exam: Clear to Auscultation Bilateral. absent: Rhonchi, Wheezes, NORMAL BREATHING PATTERN (mild dyspnea) - Cardiovascular Exam Cardiovascular Exam: REGULAR RHYTHM, +S1, +S2. absent: +S4, Systolic Murmur (CABG scar intact) - GI/Abdominal Exam GI & Abdominal Exam: Normal Bowel Sounds, Soft. absent: Tenderness - Extremities Exam Extremities exam: Positive for: normal inspection, pedal edema. Negative for: calf tenderness Results - Vital Signs Recent Vital Signs: Last Vital Signs Temp 97.7 F 11/29/18 12:00 Pulse 71 11/29/18 12:00 Resp 20 11/29/18 12:00 BP 114/48 L 11/29/18 12:00 Pulse Ox 98 11/29/18 12:00 - Labs Result Diagrams: 11/29/18 05:54 11/29/18 05:54 Labs: Laboratory Results - last 24 hr 11/28/18 11/28/18 11/28/18 12:44 13:04 16:21 WBC RBC Hgb Hct MCV MCH MCHC RDW Plt Count MPV Neut % (Auto) Lymph % (Auto) Owsley % (Auto) Eos % (Auto) Baso % (Auto) Neut # (Auto) Lymph # (Auto) Owsley # (Auto) Eos # (Auto) Baso # (Auto) APTT 60 H D Sodium Potassium Chloride Carbon Dioxide Anion Gap BUN Creatinine Est GFR ( Amer) Est GFR (Non-Af Amer) POC Glucose (mg/dL) 190 H Random Glucose Calcium Phosphorus Magnesium Total Bilirubin AST ALT Alkaline Phosphatase Troponin I < 0.0120 Total Protein Albumin Globulin Albumin/Globulin Ratio 11/28/18 11/29/18 11/29/18 21:07 05:54 05:54 WBC 9.6 RBC 4.14 L Hgb 12.3 Hct 37.1 MCV 89.6 MCH 29.7 MCHC 33.2 RDW 15.9 H Plt Count 297 MPV 8.2 Neut % (Auto) 68.7 Lymph % (Auto) 18.2 L Owsley % (Auto) 9.6 Eos % (Auto) 3.0 Baso % (Auto) 0.5 Neut # (Auto) 6.6 Lymph # (Auto) 1.7 Owsley # (Auto) 0.9 H Eos # (Auto) 0.3 Baso # (Auto) 0.0 APTT Sodium 135 Potassium 4.5 Chloride 97 L Carbon Dioxide 28 Anion Gap 15 BUN 18 Creatinine 0.7 L Est GFR ( Amer) > 60 Est GFR (Non-Af Amer) > 60 POC Glucose (mg/dL) 173 H Random Glucose 154 H D Calcium 9.3 Phosphorus 4.6 H Magnesium 1.6 Total Bilirubin 0.8 AST 26 ALT 19 L Alkaline Phosphatase 95 Troponin I Total Protein 7.5 Albumin 4.4 Globulin 3.1 Albumin/Globulin Ratio 1.4 - EKG Data EKG Interpreted by: Myself Assessment & Plan - Assessment and Plan (Free Text) Assessment: [facility] for CP at time of elective endoscopy for peptic ulcer disease: endoscopy cancelled - LA ruled out CAD 7 Hx of CVA Hx of CABG 1998 Hx of LCX stent HX of L. CA for ICA stenosis remains CP free, LA ruled out, echo images reviewed by me: Preserved LVEF 50- 55%. EKG 11/27: NSR, lateral ST changes can be due to ischemia. Patient with extensive CAD history, poorly controlled DM, HTN stable and hyperlipidemia maintained on crestor. MEDS: Metoprolol Succinate (Toprol Xl) 25 mg PO DAILY [facility] Enalapril Maleate (Vasotec) 5 mg PO DAILY [facility] Isosorbide Mononitrate (Imdur) 60 mg PO DAILY [facility] Ranolazine (Ranexa) 1,000 mg PO BID [facility] Aspirin (Ecotrin) 81 mg PO DAILY [facility] Ticagrelor (Brilinta) 90 mg PO BID [facility] Furosemide (Lasix) 40 mg PO BID [facility] Potassium Chloride (Klor-Con 10) 10 meq PO DAILY [facility] Rosuvastatin Calcium (Crestor) 40 mg PO HS [facility] - on optimal medical therapy - CP free - NSR - Mild volume overload and SOB - suggest change to lasix IV 40 Q12: if breathing improves possibe d/c in Am - patient sees Dr. Venegas as outpatient: He has a f/u appointment within the week.
[2018-11-30 00:23] VITALS: RESP 20
[2018-11-30] MEDS: Albuterol 0.042% Inhal Sol (1.25 mg/3 mL) UD INH SCH ×2 (04:30→07:58)
[2018-11-30 07:54] LABS: BASO % 0.3 % (0.0-2.0); EOS # 0.3 K/uL (0.0-0.7); EOS % 2.9 % (0.0-4.0); HEMOGLOBIN 13.4 g/dL (12.0-18.0); LYMPH # 1.4 K/uL (1.0-4.3); LYMPH % 13.9 % (20.0-40.0); MEAN CELL VOLUME 88.5 fL (80.0-94.0); MEAN CORPUSCULAR HEMOGLOBIN 29.9 pg (27.0-31.0); MEAN CORPUSCULAR HGB CONC 33.7 g/dL (33.0-37.0); MEAN PLATELET VOLUME 8.1 fL (7.2-11.7); MONO # 0.9 K/uL (0.0-0.8); NEUT # 7.5 K/uL (1.8-7.0); NEUT % 73.9 % (50.0-75.0); RBC 4.5 Mil/uL (4.40-5.90); RED CELL DISTRIBUTION WIDTH 15.8 % (11.5-14.5); WHITE BLOOD COUNT 10.2 K/uL (4.8-10.8)
[2018-11-30 08:15] LABS: ALB/GLOB RATIO 1.3 (1.0-2.1); ALBUMIN 4.7 g/dL (3.5-5.0); ALT/SGPT 20 U/L (21-72); AST/SGOT 41 U/L (17-59); BLOOD UREA NITROGEN 22 mg/dL (9-20); CALCIUM 9.6 mg/dl (8.6-10.4); GFR NON-AFRICAN AMERICAN > 60
[2018-11-30] MEDS: (Novolin R) Insulin Human Regular 100 units/ml vial SC SCH (08:24)
[2018-11-30 08:42] VITALS: PULSE 76; TEMP 97.8; O2SAT 97
--- NOTE | 2018-11-30 10:57 | PN ---
DATE: 11/30/2018 LOCATION: 659, bed A. SUBJECTIVE: This is a 68-year-old male seen and examined out of the intensive care unit with no reported chest pain or palpitation with complaint of generalized weakness and malaise as well as recent change of bowel movement habit. The entire chart is reviewed including but not limited to the most recent lab and radiology study results, current and the previous medication list, and today's lab results still pending. However, the latest blood glucose level reported to be 117 with reported increased phosphorus, but low ALT with normal BUN and creatinine as well as normal hemoglobin and hematocrit. PHYSICAL EXAMINATION: GENERAL: A 68-year-old male. VITAL SIGNS: Afebrile with pulse of 82, respiratory rate 20 to 22, blood pressure of 136/66. HEENT: Pale dry oral mucous membrane. Nonicteric sclerae. LUNGS: Few scattered crepitation. Decreased air entry at bases. HEART: Positive S1 and S2. ABDOMEN: Soft with mild generalized tenderness. No mass or organomegaly. No rebound tenderness or guarding. EXTREMITIES: Without significant edema, clubbing, or cyanosis. NEUROLOGIC: No reported new neurological deficits, sensory or motor. IMPRESSION: 1. Recently reported change of bowel movement habit of unclear etiology. The patient was scheduled for colonoscopy, canceled due to his cardiac status and complaint of chest pain. 2. Known history of hypertension, coronary artery disease status post coronary artery bypass graft. 3. Reported history of cerebrovascular accident without residual. 4. Reported history of carotid stenosis, cardiology workup is in process. 5. History of endarterectomy, diabetes mellitus with hyperlipidemia as well as chronic obstructive pulmonary disease. 6. Sleep apnea by history with benign prostatic hypertrophy. SUGGESTIONS: 1. Agree with your plan. 2. No aggressive GI workup in the meantime until the patient is more stable clinically. 3. Further recommendation to follow. Mindy Childers MD
[2018-11-30] MEDS: Ranolazine 500 mg Extended Release Tablets PO SCH (10:58)
[2018-11-30] MEDS: Sucralfate 1 gm/10 ml Oral Susp UD PO SCH (10:59)
[2018-11-30] MEDS: Potassium Chloride 10 mEq ER Tab PO SCH (10:59)
[2018-11-30] MEDS: Metoprolol Succinate 25 mg XL Tab PO SCH (11:00)
[2018-11-30] MEDS: Ammonium Lactate 12% Lotion (225 g) TOP SCH (11:00)
[2018-11-30 11:07] VITALS: BP 144/72
--- NOTE | 2018-12-01 08:23 | HP ---
HISTORY OF PRESENT ILLNESS: Mr. Nelson is admitted to the hospital with chief complaint of shortness of breath and chest pain. The patient came for endoscopic procedure. The patient is having chest pain and shortness of breath and was admitted to ICU. The patient has a long history of coronary artery disease, status post CABG, history of severe COPD, sleep apnea. The patient had stopped smoking two months ago. He is on nitroglycerin, albuterol, Spiriva and aspirin. PHYSICAL EXAMINATION: GENERAL: The patient is awake, alert, oriented, short of breath, slightly obese. VITAL SIGNS: Temperature is 98, pulse 90. HEENT: Within normal limits. NECK: Supple. CHEST: Symmetrical air entry. HEART: Regular. ABDOMEN: Soft. EXTREMITIES: No edema. IMPRESSION: Unstable angina, chronic obstructive pulmonary disease. PLAN: The patient is to get bed rest. Supportive care. Bronchodilator. Shasta Guillen MD
== END 2018-11-30 12:51 | disposition home or self-care (01) | DRG 282 ==
LOC: C.ENDO 07:02 → C.9S 10:47 → C.9I 12:41 → C.6T 11-29 23:19
PROVIDERS: ADMIT Internal Medicine Pulmonary Disease; ATTEND Internal Medicine Pulmonary Disease
DX: I21.4 Non-ST elevation (NSTEMI) myocardial infarction (principal); E78.5 Hyperlipidemia, unspecified; G47.30 Sleep apnea, unspecified; H40.9 Unspecified glaucoma; H91.90 Unspecified hearing loss, unspecified ear; I11.0 Hypertensive heart disease with heart failure; I25.110 Atherosclerotic heart disease of native coronary artery with unstable angina pectoris; I50.9 Heart failure, unspecified; I65.29 Occlusion and stenosis of unspecified carotid artery; J44.9 Chronic obstructive pulmonary disease, unspecified; K27.9 Peptic ulcer, site unspecified, unspecified as acute or chronic, without hemorrhage or perforation; N40.0 Benign prostatic hyperplasia without lower urinary tract symptoms; Z79.4 Long term (current) use of insulin; Z95.5 Presence of coronary angioplasty implant and graft; Z87.891 Personal history of nicotine dependence; E10.69 Type 1 diabetes mellitus with other specified complication; E10.41 Type 1 diabetes mellitus with diabetic mononeuropathy; E10.51 Type 1 diabetes mellitus with diabetic peripheral angiopathy without gangrene